=== PATIENT | male | born 1960 | race Caucasian/White ===

== ENCOUNTER → 2024-04-14 | Outpatient (CLI) | payer BC, MEDICARE, SELFPAY | END | disposition home or self-care (01) | LOC: SLDO 15:39 | PROVIDERS: PCP Registered Nurse; Referring Provider Registered Nurse; Visit Provider Registered Nurse | DX: L02.415 Cutaneous abscess of right lower limb (principal); L03.115 Cellulitis of right lower limb | CPT/HCPCS: 87070; 87075; 87077; 87186; 87205 ==

== ENCOUNTER 2024-09-15 13:31 | Emergency (ER) | payer BC, SELFPAY ==
[2024-09-15 13:31] VITALS: BMI 31.7
[2024-09-15 13:45] VITALS: BP 136/69; PULSE 72; RESP 18; TEMP 36.9; O2SAT 96
--- NOTE | 2024-09-15 13:56 | XR_ITS ---
Examination: Abdomen sonogram, Limited Date and time of exam: September 15, 2024 1410 hours INDICATIONS: Epigastric pain 7 months with high ammonia levels Technique: Real-time gupta scale transabdominal sonographic images of the upper abdomen obtained. Findings: Absent gallbladder Common bile duct 0.4 cm Pancreatic head 3.3 cm with dilated pancreatic duct 1.6 cm Liver 15.3 cm irregular contour hepatopedal portal venous flow Patent IVC IMPRESSION: Cirrhosis Dilated pancreatic duct, consider MRCP follow-up
--- NOTE | 2024-09-15 13:57 | PD.EDRME ---
Rapid Medical Screening Exam RME Arrival date/time: 09/15/24 13:31 64-year-old male with a history of liver cirrhosis was sent over by his primary care provider for an elevated ammonia level. Patient had labs drawn this morning. I have greeted and performed a focused initial assessment of this patient. A comprehensive ED assessment and evaluation of the patient, analysis of all test results, and completion of the medical decision making process will be conducted by additional ED providers. Chief Complaint: Recheck/Abnormal Lab/Rx Vital signs: Vital Signs Temperature 98.4 F 09/15/24 13:45 Pulse Rate 72 09/15/24 13:45 Respiratory Rate 18 09/15/24 13:45 Blood Pressure 136/69 H 09/15/24 13:45 Pulse Oximetry (%) 96 09/15/24 13:45 Oxygen Delivery Method Room Air 09/15/24 13:45 Vital signs reviewed by provider: Yes
--- NOTE | 2024-09-15 17:30 | PC.NURSE ---
no answer in lobby when called for room in ed
[2024-09-15 19:18] VITALS: BP 151/65; PULSE 72; RESP 18; TEMP 36.6; O2SAT 97
--- NOTE | 2024-09-15 20:17 | PD.EDRECHK ---
ED Recheck Abnl Lab Rx-RME/HPI General Chief Complaint: Recheck/Abnormal Lab/Rx Stated Complaint: HIGH AMMONIA LEVELS Time Seen by Provider: 09/15/24 18:38 Arrival date/time: 09/15/24 13:31 RME / HPI RME / HPI narrative: 09/15/24 13:31 64-year-old male with a history of liver cirrhosis was sent over by his primary care provider for an elevated ammonia level. Patient had labs drawn this morning. He denies any increased confusion. Patient admits to only taking his lactulose 15 mL once daily when he should be taking it twice daily. He denies any recent illness with fever, chills, cough, upper respiratory complaints. He is complaining of chronic nausea and upset stomach. Denies vomiting or hematemesis. I have greeted and performed a focused initial assessment of this patient. A comprehensive ED assessment and evaluation of the patient, analysis of all test results, and completion of the medical decision making process will be conducted by additional ED providers. Related Data Previous Rx's ?Medication ?Instructions ?Recorded nicotine 21 mg/24 hr daily 21 mg topical Q24H #7 ea 10/14/23 transdermal patch (Nicoderm CQ) Allergies Allergy/AdvReac Type Severity Reaction Status Date / Time Penicillins Allergy Severe Rash Verified 01/11/24 12:27 Review of Systems Review of Systems Systems Reviewed: All systems reviewed, normal except as documented Past Medical History Past Medical History NEUROLOGIC: Negative Seizures CARDIAC: Positive Cardiac Disorders, Edema and Hypotension; Negative Congestive Heart Failure RESPIRATORY: Positive Chronic Obstructive Pulmonary Disease (COPD), Bronchitis and Pneumonia GASTROINTESTINAL: Positive Gastrointestinal Disorders, Hepatitis (hep c), Cirrhosis, Gall Bladder Disease, Obstructive Bowel and Gastroesophageal Reflux Disease GENITOURINARY: Negative Renal Disease MUSCULOSKELETAL: Positive Musculoskeletal Disorders and Arthritis ENT: Positive Ear Infection and Deafness ENDOCRINE: Negative Diabetes Mellitus Type 1 or Diabetes Mellitus Type 2 PSYCHO/SOCIAL: Positive Depression and Anxiety OTHER HISTORY: Positive Chemotherapy (non hodgkins); Negative Blood Transfusions or Anesthesia Reactions Surgical History SURGICAL: Positive Tonsillectomy, Abdominal Surgery, Gastrostomy and Bowel Surgery Social History SMOKING STATUS: Current some day smoker ED Exam Narrative Physical exam: Alert and oriented 64-year-old male, no acute distress. Lungs are clear, regular rate and rhythm without murmurs. Abdomen is distended, soft, nontender. Extremities reveal venous stasis dermatitis with bilateral pitting edema. Course Orders Category Date Time Status US gall bladder Stat Exams 09/15/24 13:56 Completed Vital Signs Vital signs: Vital Signs Temperature 98.4 F 09/15/24 13:45 Pulse Rate 72 09/15/24 13:45 Respiratory Rate 18 09/15/24 13:45 Blood Pressure 136/69 H 09/15/24 13:45 Pulse Oximetry (%) 96 09/15/24 13:45 Oxygen Delivery Method Room Air 09/15/24 13:45 Recheck / Abnormal Lab / Rx Consultations Consultation(s) initiated? (list below): Yes Consultation #1 (Physician, Specialty, Details): Dr Styles. He recommends the patient to take lactulose 15 mL twice daily and follow-up in the office next week. Admission Indicated Admission indicated?: not indicated Explain why admission is indicated or not indicated:: Patient is stable for discharge Admission Request Was there a request for admission?: No Disposition Plan Disposition Plan: Discharge Discharge Attestation Discharge Attestation: The patient and all family members were given an opportunity to ask questions and understood the discharge instructions. Discharge instructions specifically effects, indications for sooner follow up or return to the emergency department, and the expected course of current diagnosis. Patient condition: Stable Discharge Plan Plan Patient Disposition: HOME (Self Care) Discharge Disposition comment: Stable Prescriptions/Referrals Prescriptions/Med Rec: No Action nicotine [Nicoderm CQ] 21 mg/24 hr patch 24 hour 21 mg topical Q24H Qty: 7 0RF Problem List Clinical Impression: Cirrhosis, Increased ammonia level Patient/Caregiver Discharge Instructions Education Materials: ED Cirrhosis Additional Instructions: Case discussed with Dr. Styles. He recommends you take the lactulose 15ml twice daily as previously prescribed. Your ammonia level will continue to be elevated as long as you do not take your lactulose as prescribed. He would like you to follow-up in the office next week. Print Language: Zimbabwean Stand Alone Forms: Lynda Award Info., Patient Portal Info Letter PA/RN MDS COORDINATOR Supervising Physician PA/RN MDS COORDINATOR Supervising Physician: Dr Lang
== END 2024-09-15 20:39 | disposition home or self-care (01) ==
PROVIDERS: Emergency Provider Emergency Medicine; PCP Family Medicine
DX: K74.60 Unspecified cirrhosis of liver (principal); K86.89 Other specified diseases of pancreas
CPT/HCPCS: 76705; 99284

== ENCOUNTER → 2024-09-15 | Outpatient (CLI) | payer BC, SELFPAY ==
[2024-09-15 11:06] LABS: Lactate (Lactic Acid) 2.1 mMol/L (0.4-2.0)
[2024-09-15 11:07] LABS: Basophils # (Auto) 0.1 Thou/mm3 (0.0-0.2); Basophils % (Auto) 1 % (0-2.5); Eosinophils # (Auto) 0.2 Thou/mm3 (0.0-0.5); Eosinophils % (Auto) 3 % (0-10); Hematocrit 39.1 % (41.0-53.0); Hemoglobin 14.1 g/dL (13.5-16.0); Immature Granulocytes % (Auto) 0 % (0-0); Immature Granulocytes Auto 0.02 Thou/mm3 (0.00-0.00); Lymphocytes # (Auto) 1.5 Thou/mm3 (1.0-4.8); Lymphocytes % (Auto) 27 % (10-50); Mean Corpuscular HGB Conc 36.1 g/dl (31.0-37.0); Mean Corpuscular Hemoglobin 34.6 pg (25.0-35.0); Mean Corpuscular Volume 96 fL (80-100); Monocytes # (Auto) 0.5 Thou/mm3 (0.0-0.8); Monocytes % (Auto) 9 % (0-12); Neutrophils # (Auto) 3.5 Thou/mm3 (1.8-7.7); Neutrophils % (Auto) 60 % (37-80); Nucleated Red Blood Cell % 0 /100 WBC (0); Platelet Count 104 Thou/mm3 (140-440); RDW Standard Deviation 49.8 fL (35.1-43.9); Red Blood Count 4.07 Miln/mm3 (4.50-5.90); White Blood Count 5.8 Thou/mm3 (3.8-10.6)
[2024-09-15 11:30] LABS: Alanine Aminotransferase 32 U/L (10-49); Albumin, Serum 3.6 gm/dL (3.4-4.8); Albumin/Globulin Ratio 1.6 (1.2-2.2); Alkaline Phosphatase 138 U/L (46-116); Anion Gap 8 (7-16); Aspartate Amino Transferase 36 U/L (0-34); BUN/Creatinine Ratio 9 Ratio (12-20); Bilirubin,Total 2.7 mg/dL (0.3-1.2); Blood Urea Nitrogen 8 mg/dL (9-23); Calcium 8.5 mg/dL (8.3-10.6); Calcium (Corrected) 8.8 mg/dL (8.5-10.1); Chloride 108 mMol/L (98-107); Creatinine (Component) 0.9 mg/dL (0.6-1.3); Globulin 2.3 gm/dL (2.3-3.5); Glucose 165 mg/dL (74-106); Osmolality,Calculated 292 (275-295); Potassium 3.7 mMol/L (3.4-5.1); Sodium 146 mMol/L (136-145); Total Protein 5.9 gm/dL (5.7-8.2); eGFR > 60 See Note
[2024-09-15 11:31] LABS: Ammonia 107 uMol/L (11-32)
[2024-09-15 13:47] LABS: Reflex Lactate? Y
== END | disposition home or self-care (01) ==
LOC: COPL 10:12
PROVIDERS: PCP Family Medicine; Referring Provider Family Medicine; Visit Provider Family Medicine
DX: K76.82 Hepatic encephalopathy (principal); K70.31 Alcoholic cirrhosis of liver with ascites; R60.0 Localized edema
CPT/HCPCS: 36415; 80053; 82140; 83605; 85025

== ENCOUNTER 2024-10-27 08:36 | Emergency (ER) | payer BC, SELFPAY ==
[2024-10-27 08:43] VITALS: BP 148/86; PULSE 71; RESP 18; O2SAT 98; BMI 31.3
--- NOTE | 2024-10-27 08:52 | EKG_ITS ---
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pdf
--- NOTE | 2024-10-27 08:52 | XR_ITS ---
Examination: PA lateral chest 2 views TECHNIQUE: Upright PA lateral chest 2 views Date and time: October 27, 2024 0929 hours INDICATIONS: Onset acute chest pain today. FINDINGS: Normal heart size. No pneumonia or pulmonary edema. Intact osseous structures. IMPRESSION: No active disease
--- NOTE | 2024-10-27 08:52 | PD.EDRME ---
Rapid Medical Screening Exam RME Arrival date/time: 10/27/24 08:36 64-year-old male with history of methamphetamine abuse, cirrhosis presents with concerns for feeling disoriented Chief Complaint: General Adult/Misc Complain Vital signs: Vital Signs Pulse Rate 71 10/27/24 08:43 Respiratory Rate 18 10/27/24 08:43 Blood Pressure 148/86 H 10/27/24 08:43 Pulse Oximetry (%) 98 10/27/24 08:43 Oxygen Delivery Method Room Air 10/27/24 08:43
--- NOTE | 2024-10-27 08:53 | XR_ITS ---
Examination: CT brain head without contrast. 2-D sagittal coronal reconstructions Date and time of exam:October 27, 2024 0916 hours Comparison 01/11/2024 INDICATIONS: Headache dizziness ataxia today CTDI: vol (mGy):104 DLP: (mGycm):22.15 Technique: Multiple CT axial sections of the brain have been obtained, 5 mm slice thickness. Contrast has not been administered. 2-D sagittal, coronal reconstructions have been obtained Low dose protocols were performed. One or more of the following dose reduction techniques were used; automated exposure control, adjustment of the mA and/or KV according to patient size, use of iterative reconstruction technique. Findings: Images are degraded by patient motion Ventricles are not enlarged. No hemorrhage density or mass effect Cranial vault intact IMPRESSION: Negative for acute hemorrhage mass effect or midline shift If symptoms persist, consider brain MRI follow-up stroke protocol
[2024-10-27 09:23] LABS: Basophils # (Auto) 0.1 Thou/mm3 (0.0-0.2); Basophils % (Auto) 1 % (0-2.5); Eosinophils # (Auto) 0.2 Thou/mm3 (0.0-0.5); Eosinophils % (Auto) 2 % (0-10); Hematocrit 38.9 % (41.0-53.0); Hemoglobin 14.6 g/dL (13.5-16.0); Immature Granulocytes Auto 0.02 Thou/mm3 (0.00-0.00); Lymphocytes # (Auto) 1.8 Thou/mm3 (1.0-4.8); Lymphocytes % (Auto) 22 % (10-50); Mean Corpuscular HGB Conc 37.5 g/dl (31.0-37.0); Mean Corpuscular Hemoglobin 35.1 pg (25.0-35.0); Mean Corpuscular Volume 94 fL (80-100); Monocytes # (Auto) 0.8 Thou/mm3 (0.0-0.8); Monocytes % (Auto) 10 % (0-12); Neutrophils # (Auto) 5.4 Thou/mm3 (1.8-7.7); Neutrophils % (Auto) 65 % (37-80); Nucleated Red Blood Cell # 0.00 Thou/mm3 (0.00-0.00); Nucleated Red Blood Cell % 0 /100 WBC (0); Platelet Count 98 Thou/mm3 (140-440); RDW Standard Deviation 47.9 fL (35.1-43.9); Red Blood Count 4.16 Miln/mm3 (4.50-5.90); White Blood Count 8.3 Thou/mm3 (3.8-10.6)
--- NOTE | 2024-10-27 09:24 | EDNOTE_ITS ---
ED General RME/HPI General Chief complaint: General Adult/Misc Complain Stated complaint: tired, no appetite, sleeping alot. ammonia high Time Seen by Provider: 10/27/24 09:17 Arrival date/time: 10/27/24 08:36 RME / HPI RME / HPI narrative: 10/27/24 08:36 64-year-old male with history of methamphetamine abuse, cirrhosis presents with concerns for feeling disoriented Related Data Previous Rx's ?Medication ?Instructions ?Recorded nicotine 21 mg/24 hr daily 21 mg topical Q24H #7 ea transdermal patch (Nicoderm CQ) lactulose 10 gram/15 mL oral 20 g (30 mL) PO TID #3,78 5 mL 10/27/24 solution pantoprazole 40 mg tablet,delayed 40 mg PO QDAY #30 ta bs 10/27/24 release Allergies Allergy/AdvReac Type Severity Reaction Status Date / Time Penicillins Allergy Severe Rash Verified 10/27/24 08:37 Review of Systems Review of Systems Systems Reviewed: All systems reviewed, normal except as documented ED Exam Narrative Physical exam: Physical Exam GENERAL: NAD, AAOx3 HEENT: Moist mucosa. Eyes open, symmetrical, & clear CARDIO: Heart RRR, no obvious murmurs PULM: No noted coughing/dyspnea CTA B/L, no R/W/R GI: Abdomen soft, distended, no pain on palpation. BSx4 SKIN/MSK/EXT: Venous stasis dermatitis on bilateral lower extremities mild pitting edema up to the ankle, no pain on palpation. Pedal pulses present B/L NEURO: AAOx3, no focal neuro deficits, able to move all 4 extremities Course Course Course Narrative: See [facility] Quality Measures none Orders Category Date Time Status EKG (ED ONLY) *Do not use* NOW Care 10/27/24 08:[address] head/brain wo con Stat Exams 10/27/24 08:53 Completed EKG (ED Only) Stat Exams 10/27/24 08:52 Draft XR chest 2V Stat Exams 10/27/24 08:52 Completed Ammonia Stat Lab 10/27/24 09:11 Completed B-Type Natriuretic Peptide Stat Lab 10/27/24 09:11 Completed CBC Stat Lab 10/27/24 09:11 Completed Comprehensive Metabolic Panel Stat Lab 10/27/24 09:11 Completed Drug Screen,Urine Stat Lab 10/27/24 08:52 Ordered Lipase Stat Lab 10/27/24 09:11 Completed Magnesium Stat Lab 10/27/24 09:11 Completed Partial Thromboplastin Time Stat Lab 10/27/24 09:11 Completed Prothrombin Time with INR Stat Lab 10/27/24 09:11 Completed Troponin I Stat Lab 10/27/24 09:11 Completed Urinalysis Stat Lab 10/27/24 08:52 Ordered Magnesium Oxide [Mag-Ox 400] Med 10/27/24 10:09 Discontinued 400 mg PO X1 ONE Pantoprazole [Protonix] Med 10/27/24 10:20 Discontinued 40 mg PO X1 ONE Vital Signs Vital signs: Vital Signs Pulse Rate 71 10/27/24 08:43 Respiratory Rate 18 10/27/24 08:43 Blood Pressure 148/86 H 10/27/24 08:43 Pulse Oximetry (%) 98 10/27/24 08:43 Oxygen Delivery Method Room Air 10/27/24 08:43 Discharge Plan Plan Patient Disposition: HOME (Self Care) Prescriptions/Referrals Prescriptions/Med Rec: New lactulose 10 gram/15 mL solution 20 g PO TID Qty: 3785 0RF pantoprazole 40 mg tablet,delayed release (DR/EC) 40 mg PO QDAY Qty: 30 0RF No Action nicotine [Nicoderm CQ] 21 mg/24 hr patch 24 hour 21 mg topical Q24H Qty: 7 0RF Problem List Clinical Impression: Hyperammonemia Patient/Caregiver Discharge Instructions Additional Instructions: Follow-up with your primary care physician within 1 week of discharge. Your lactulose dose has been increased please take this medication as prescribed titrate until 3 bowel movements per day. 30 mL in the morning, 30 mL at noon, 30 mL at 6 PM You have been prescribed pantoprazole for your upset stomach. Please continue taking your diuretics for your cirrhosis. Should your symptoms should recur or worsen patient is instructed to return to the ER. Print Language: Yi Stand Alone Forms: Lynda Award Info., Patient Portal Info Letter MDM Narrative MDM hospital course: 64-year-old male with past medical history of non-Hodgkin lymphoma status postchemotherapy, hepatitis C, cirrhosis, COPD, GERD who presented to the ED due to confusion. Patient states that he thinks his ammonia levels are high, he endorses that usually he knows if his ammonia levels are elevated because he feels more confused, he is running into christensen. He also endorses some nausea and vomiting nonbloody. He states he takes his lactulose at least twice a day, however patient has only been having 1 bowel movement every 1 to 2 days. He also endorses that he has decreased appetite. Labs ordered, head CT ordered 1007: CBC shows some thrombocytopenia, CMP shows hypomagnesemia and chronically elevated T. bili Per chart review, ammonia level 77, troponins negative 1034: Ordered 1 dose of magnesium oxide, and pantoprazole Increased his outpatient lactulose to 3 times a day and instructed the patient that he needs to have at least 3 bowel movements per day in order to get rid of the excess ammonia in his body. Patient instructed to follow-up with his primary care physician. Gave him instructions on how to take his lactulose in order to prevent his ammonia levels from increasing. Should symptoms recur or worsen patient is instructed to return to the ER. Clinical Information Provided by patient and family Medical Records Reviewed [facility] Chronic Illness/Social Conditions which may negatively complicate care or outcome(s)-explain: Liver disease EKG Interpretation EKG #1: Date/time of EK10/27/24 9:58 am Lab Interpretation Labs: interpreted by la Lab(s) interpretation(s): CBC shows thrombocytopenia,, Medication Administration(s) Medication Administration History Discontinued Medications Magnesium Oxide (Magnesium Oxide 400 Mg Tablet) 400 mg PO X1 ONE Stop: 10/27/24 10:10 Pantoprazole Sodium (Pantoprazole 40 Mg Tablet) 40 mg PO X1 ONE Stop: 10/27/24 10:21
--- NOTE | 2024-10-27 09:40 | PC.NURSE ---
PT COMING IN FROM ED LOBBY WITH C/O GENERALIZED BODY ACHES; PER PT, I HURT ALL OVER; IT'S BEEN LIKE THIS FOR 3 YEARS. I HAVE LIVER CIRRHOSIS. I ALSO HAVE BEEN NAUSEOUS AND VOMITING FOR THE PAST COUPLE OF DAYS AND I FEEL LIKE I'M CONFUSED; I'M BUMPING INTO [place]. I'M SLEEPING ALL THE TIME. I USUALLY GET LIKE THIS WHEN MY AMMONIA IS HIGH. THE LAST TIME I WAS IN A HOSPITAL, MY AMMONIA WAS HIGH TOO. PT CONNECTED TO MONITORS AT THIS TIME.
[2024-10-27 09:45] VITALS: BP 168/77; PULSE 68; RESP 13; TEMP 36.7; O2SAT 100; BMI 32.3
[2024-10-27 09:50] LABS: Ammonia 77 uMol/L (11-32)
[2024-10-27 09:53] LABS: Alanine Aminotransferase 22 U/L (10-49); Albumin, Serum 3.7 gm/dL (3.4-4.8); Albumin/Globulin Ratio 1.3 (1.2-2.2); Alkaline Phosphatase 122 U/L (46-116); Anion Gap 6 (7-16); Aspartate Amino Transferase 38 U/L (0-34); BUN/Creatinine Ratio 9 Ratio (12-20); Bilirubin,Total 2.8 mg/dL (0.3-1.2); Blood Urea Nitrogen 9 mg/dL (9-23); Calcium 8.8 mg/dL (8.3-10.6); Calcium (Corrected) 9.0 mg/dL (8.5-10.1); Carbon Dioxide 29.5 mMol/L (20.0-31.0); Chloride 107 mMol/L (98-107); Creatinine (Component) 1.0 mg/dL (0.6-1.3); Estimated Creatinine Clearance 84.1 mL/min (>60); Globulin 2.8 gm/dL (2.3-3.5); Glucose 249 mg/dL (74-106); Lipase 38 U/L (12-53); Magnesium 1.4 mg/dL (1.6-2.6); Osmolality,Calculated 289 (275-295); Potassium 3.9 mMol/L (3.4-5.1); Sodium 142 mMol/L (136-145); Total Protein 6.5 gm/dL (5.7-8.2); Troponin I < 0.020 ng/mL (0.0-0.045); eGFR > 60 See Note
[2024-10-27 10:00] LABS: B-Type Natriuretic Peptide 26 pg/mL (0-100)
[2024-10-27 10:07] LABS: INR 1.2 (0.9-1.3); Partial Thromboplastin Time 29.0 Seconds (22.0-36.0); Prothrombin Time 13.2 Seconds (9.0-12.2)
[2024-10-27] MEDS: MAGNESIUM OXIDE 400 MG TABLET PO (10:37)
[2024-10-27] MEDS: PANTOPRAZOLE 40 MG TABLET PO (10:37)
[2024-10-27 10:39] VITALS: BP 125/101; PULSE 67; RESP 19; TEMP 36.7; O2SAT 95
== END 2024-10-27 10:47 | disposition home or self-care (01) ==
LOC: SERX 10:47
PROVIDERS: Nurse Practitioner Primary Care; Emergency Provider Family Medicine; PCP Family Medicine
DX: E72.20 Disorder of urea cycle metabolism, unspecified (principal); K74.60 Unspecified cirrhosis of liver; R07.9 Chest pain, unspecified; R51.9 Headache, unspecified; R42 Dizziness and giddiness; I45.10 Unspecified right bundle-branch block; I44.4 Left anterior fascicular block
CPT/HCPCS: 36415; 70450; 71046; 80053; 80307; 81001; 82140; 83690; 83735; 83880; 84484; 85025; 85610; 85730; 93005; 99284; A9270

== ENCOUNTER → 2024-11-17 | Outpatient (CLI) | payer BC, SELFPAY ==
[2024-11-17 10:36] LABS: Alanine Aminotransferase 31 U/L (10-49); Albumin, Serum 3.8 gm/dL (3.4-4.8); Albumin/Globulin Ratio 1.6 (1.2-2.2); Alkaline Phosphatase 113 U/L (46-116); Anion Gap 10 (7-16); Aspartate Amino Transferase 38 U/L (0-34); BUN/Creatinine Ratio 7 Ratio (12-20); Bilirubin,Total 3.8 mg/dL (0.3-1.2); Blood Urea Nitrogen 7 mg/dL (9-23); Calcium 9.0 mg/dL (8.3-10.6); Calcium (Corrected) 9.2 mg/dL (8.5-10.1); Carbon Dioxide 29.4 mMol/L (20.0-31.0); Chloride 107 mMol/L (98-107); Creatinine (Component) 1.0 mg/dL (0.6-1.3); Globulin 2.4 gm/dL (2.3-3.5); Glucose 150 mg/dL (74-106); Osmolality,Calculated 291 (275-295); Potassium 3.4 mMol/L (3.4-5.1); Sodium 146 mMol/L (136-145); Total Protein 6.2 gm/dL (5.7-8.2); eGFR > 60 See Note
[2024-11-17 10:46] LABS: Ammonia 116 uMol/L (11-32)
== END | disposition home or self-care (01) ==
LOC: COPL 09:27
PROVIDERS: PCP Family Medicine; Referring Provider Family Medicine; Visit Provider Family Medicine
DX: N18.2 Chronic kidney disease, stage 2 (mild) (principal); K70.31 Alcoholic cirrhosis of liver with ascites; L97.801 Non-pressure chronic ulcer of other part of unspecified lower leg limited to breakdown of skin
CPT/HCPCS: 36415; 80053; 82140

== ENCOUNTER 2024-12-20 08:19 | Emergency (ER) | payer MEDICARE, SELFPAY ==
[2024-12-20 08:32] VITALS: BP 150/68; PULSE 60; RESP 18; TEMP 36.6; O2SAT 98
--- NOTE | 2024-12-20 08:36 | XR_ITS ---
Examination: CT abdomen and pelvis without contrast. Coronal 3-D reconstructions. Sagittal 2-D reconstructions. Date and time of exam:December 20, 2024 0917 hours INDICATIONS: Generalized abdominal pain and distention today COMPARISON: 12/19/2016. CTDI: vol (mGy): 9.76 DLP: (mGycm): 653 Technique: Axial images of the abdomen have been obtained, 3 mm slice thickness Intravenous contrast material has not been administered. Low dose protocols were performed. One or more of the following dose reduction techniques were used; automated exposure control, adjustment of the mA and/or KV according to patient size, use of iterative reconstruction technique. Findings: Cirrhosis, liver nodular in contour Suspicious for 27 mm lesion medial right lobe of the liver. Splenomegaly. Absent gallbladder No extra hepatic biliary tract dilatation. No pancreatic mass. Moderate renal scar formation, no hydronephrosis Aorta normal size. No pericecal inflammatory change. No bowel obstruction Contracted urinary bladder with urinary bladder wall thickening No significant prostatomegaly Prominent osteopenia IMPRESSION: Cirrhosis 27 mm lesion medial right lobe of the liver, recommend MRI abdomen liver follow-up pre and postcontrast Moderate renal scar formation Contracted urinary bladder with urinary bladder wall thickening, differential would include cystitis
--- NOTE | 2024-12-20 08:37 | PD.EDRME ---
Rapid Medical Screening Exam RME Arrival date/time: 12/20/24 08:19 64-year-old male with a history of COPD, cirrhosis of the liver, presents to the emergency room with a chief complaint of abdominal distention, body aches, abdominal pain x 3 days I have greeted and performed a focused initial assessment of this patient. A comprehensive ED assessment and evaluation of the patient, analysis of all test results, and completion of the medical decision making process will be conducted by additional ED providers. Chief Complaint: General Adult/Misc Complain Vital signs: Vital Signs Temperature 97.9 F 12/20/24 08:32 Pulse Rate 60 12/20/24 08:32 Respiratory Rate 18 12/20/24 08:32 Blood Pressure 150/68 H 12/20/24 08:32 Pulse Oximetry (%) 98 12/20/24 08:32 Oxygen Delivery Method Room Air 12/20/24 08:32 Vital signs reviewed by provider: Yes
[2024-12-20 08:59] LABS: Basophils # (Auto) 0.1 Thou/mm3 (0.0-0.2); Basophils % (Auto) 1 % (0-2.5); Eosinophils # (Auto) 0.2 Thou/mm3 (0.0-0.5); Eosinophils % (Auto) 3 % (0-10); Hematocrit 41.1 % (41.0-53.0); Hemoglobin 14.9 g/dL (13.5-16.0); Immature Granulocytes Auto 0.02 Thou/mm3 (0.00-0.00); Lymphocytes # (Auto) 2.0 Thou/mm3 (1.0-4.8); Lymphocytes % (Auto) 27 % (10-50); Mean Corpuscular HGB Conc 36.3 g/dl (31.0-37.0); Mean Corpuscular Hemoglobin 34.2 pg (25.0-35.0); Mean Corpuscular Volume 94 fL (80-100); Monocytes # (Auto) 0.7 Thou/mm3 (0.0-0.8); Monocytes % (Auto) 9 % (0-12); Neutrophils # (Auto) 4.4 Thou/mm3 (1.8-7.7); Neutrophils % (Auto) 60 % (37-80); Nucleated Red Blood Cell # 0.00 Thou/mm3 (0.00-0.00); Nucleated Red Blood Cell % 0 /100 WBC (0); Platelet Count 101 Thou/mm3 (140-440); RDW Standard Deviation 47.1 fL (35.1-43.9); Red Blood Count 4.36 Miln/mm3 (4.50-5.90); White Blood Count 7.3 Thou/mm3 (3.8-10.6)
[2024-12-20 09:17] LABS: INR 1.2 (0.9-1.3); Partial Thromboplastin Time 29.8 Seconds (22.0-36.0); Prothrombin Time 13.1 Seconds (9.0-12.2)
[2024-12-20 09:20] LABS: Alanine Aminotransferase 26 U/L (10-49); Albumin, Serum 3.5 gm/dL (3.4-4.8); Albumin/Globulin Ratio 1.4 (1.2-2.2); Alkaline Phosphatase 136 U/L (46-116); Ammonia 45 uMol/L (11-32); Anion Gap 8 (7-16); Aspartate Amino Transferase 32 U/L (0-34); BUN/Creatinine Ratio 7 Ratio (12-20); Bilirubin,Total 2.3 mg/dL (0.3-1.2); Blood Urea Nitrogen 7 mg/dL (9-23); Calcium 9.5 mg/dL (8.3-10.6); Calcium (Corrected) 9.9 mg/dL (8.5-10.1); Carbon Dioxide 29.3 mMol/L (20.0-31.0); Chloride 107 mMol/L (98-107); Creatinine (Component) 1.0 mg/dL (0.6-1.3); Estimated Creatinine Clearance 84.3 mL/min (>60); Globulin 2.5 gm/dL (2.3-3.5); Glucose 163 mg/dL (74-106); Lipase 35 U/L (12-53); Magnesium 1.8 mg/dL (1.6-2.6); Osmolality,Calculated 288 (275-295); Potassium 4.0 mMol/L (3.4-5.1); Sodium 144 mMol/L (136-145); Total Protein 6.0 gm/dL (5.7-8.2); eGFR > 60 See Note
[2024-12-20 09:47] LABS: Collection Type, Urine Clean Catch
[2024-12-20 09:53] VITALS: BP 153/73; PULSE 57; RESP 19; TEMP 37.1; O2SAT 98
--- NOTE | 2024-12-20 09:53 | XR_ITS ---
Examination: AP chest single view TECHNIQUE: Sitting portable AP chest single view Date and time: December 20, 2024, 1002 hours, comparison October 27, 2024 INDICATIONS: Coughing shortness of breath beginning 3 days ago. FINDINGS: Heart size. Lungs are clear. The osseous structures are intact IMPRESSION: No active disease.
[2024-12-20 09:56] LABS: Bilirubin,Urine Negative (Negative); Blood,Urine Negative (Negative); Clarity,Urine Clear (Clear/Hazy); Color,Urine Yellow (Lt Yel-Yel); Glucose, Urine 1+ (Negative); Hyaline Casts,Urine < 1 /hpf (0-1); Ketones,Urine Negative (Negative); Leukocyte Esterase,Urine Negative (Negative); Nitrite,Urine Negative (Negative); PH,Urine 7.0 (5.0-7.0); Protein,Urine Negative (Neg - Trace); RBC,Urine 1 /hpf (0-3); Specific Gravity,Urine 1.018 (1.001-1.035); Squamous Epithelial Cell,Urine < 1 /hpf (0-5); Urobilinogen,Urine 4.0 mg/dL (0.0-1.0); WBC,Urine 2 /hpf (0-5)
[2024-12-20] MEDS: OSELTAMIVIR 75 MG CAPSULE PO (10:24)
[2024-12-20] MEDS: ACETAMINOPHEN 325 MG TABLET 650 MG PO (10:24)
--- NOTE | 2024-12-20 11:26 | EDNOTE_ITS ---
ED General RME/HPI General Chief complaint: General Adult/Misc Complain Stated complaint: GENERALIZED PAIN Time Seen by Provider: 12/20/24 08:37 Arrival date/time: 12/20/24 08:19 RME / HPI RME / HPI narrative: 12/20/24 08:19 64-year-old male with a history of COPD, cirrhosis of the liver, presents to the emergency room with a chief complaint of abdominal distention, body aches, abdominal pain x 3 days I have greeted and performed a focused initial assessment of this patient. A comprehensive ED assessment and evaluation of the patient, analysis of all test results, and completion of the medical decision making process will be conducted by additional ED providers. 64-year-old male with past medical history of cirrhosis, hepatitis C,COPD, GERD, depression, anxiety who presented to [facility] emergency department on 12/20/2024 with a chief complaint of generalized bodyaches, abdominal pain, back pain and feeling weak. Patient endorsed that he has been feeling very sad recently, denies any suicidal ideation but does report that his liver illness has made his life very difficult he feels like a shell of his old self, reports that he misses his and daughter. Discussed with patient in detail about his depressive symptoms, recommended him that he needs to follow-up with his primary care physician regarding his depression and try medication if possible. Patient also expressed interest in possible hospice, recommended him to follow-up with PCP for transitioning after discussion. Patient denies any blood in vomit/stool, nausea vomiting, shortness of breath, chest pain, headache. Related Data Home Medications ?Medication ?Instructions ?Recorded ?Confirmed furosemide 40 mg tablet 40 mg PO QDAY 12/20/2412/20 potassium chloride 10 mEq 10 meq PO QDAY 12/20/2401/05 capsule,extended release Previous Rx's ?Medication ?Instructions ?Recorded nicotine 21 mg/24 hr daily 21 mg topical Q24H #7 ea transdermal patch (Nicoderm CQ) lactulose 10 gram/15 mL oral 20 g (30 mL) PO TID #3,78 5 mL 10/27/24 solution acetaminophen 325 mg tablet 325 mg PO TID PRN pain #20 tabs 12/20/24 (Tylenol) oseltamivir 75 mg capsule (Tamiflu) 75 mg PO BID 5 day s #10 caps 12/20/24 Allergies Allergy/AdvReac Type Severity Reaction Status Date / Time Penicillins Allergy Severe Rash Verified 12/20/24 08:23 Review of Systems Review of Systems Narrative Review of Systems: ROS: -CONSTITUTIONAL: Denies weight loss, fever and chills. Positive for generalized weakness. -HEENT: Denies changes in vision and hearing. -RESPIRATORY: Denies SOB and cough. -CV: Denies palpitations and Chest Pain. -GI: Positive for abdominal pain, denies nausea, vomiting,constipation and diarrhea. -: Denies dysuria and urinary frequency. -MSK: Denies myalgia and joint pain. -SKIN: Denies rash and pruritus. -NEUROLOGICAL: Denies headache and syncope. -PSYCHIATRIC: Denies recent changes in mood. Denies anxiety and positive for depression. Past Medical History Past Medical History Comments PMH COMMENT: PMH: Positive as above PSHx: Hernia surgery, multiple abdominal surgeries Allergies: Penicillin?rash Social history: -Smoking: Current active daily smoker -Alcohol Use: Denies, last drink 5 years ago, reports heavy alcohol use in the past -Illicit Drug Use: Denies -Occupation: Retired -Martial Status: Family History: Denies any pertinent family history ED Exam Narrative Physical exam: Physical Exam GENERAL: NAD, AAOx3 HEENT: Moist mucosa. Eyes open, symmetrical, & clear CARDIO: Heart RRR, no obvious murmurs PULM: No noted coughing/dyspnea CTA B/L, no R/W/R GI: Abdomen soft, distended, no pain on palpation. BSx4 abdominal scar noted SKIN/MSK/EXT: Venous stasis dermatitis on bilateral lower extremities minimal pitting edema up to the ankle, no pain on palpation. Pedal pulses present B/L NEURO: AAOx3, no focal neuro deficits, able to move all 4 extremities Course Course Course Narrative: Patient was given Tylenol for pain management, tested positive for influenza A and B, started on Tamiflu. Patient did endorse taking his lactulose earlier this morning, ammonia levels 45 which are around his baseline. Was given lactulose prior to discharge, patient discharged outpatient on Tamiflu to [facility] treatment for 5 days, follow-up with PCP in 1 week. Quality Measures none Orders Category Date Time Status Bedside COVID-19 Antigen Test NOW Care 12/20/24 08:37 Completed Bedside Influenza A&B Antigen Test NOW Care 12/20/24 08:[address] abdomen pelvis wo con Stat Exams 12/20/24 08:36 Completed CXRP [XR chest 1V portable] Stat Exams 12/20/24 09:53 Completed Ammonia Stat Lab 12/20/24 08:49 Completed CBC Stat Lab 12/20/24 08:49 Completed CMP [Comprehensive Metabolic Panel] Stat Lab 12/20/24 08:49 Completed INR [Prothrombin Time with INR] Stat Lab 12/20/24 08:49 Completed Lipase Stat Lab 12/20/24 08:49 Completed Magnesium Stat Lab 12/20/24 08:49 Completed PTT [Partial Thromboplastin Time] Stat Lab 12/20/24 08:49 Completed UA [Urinalysis] Stat Lab 12/20/24 09:15 Completed Urine Culture Stat Lab 12/20/24 09:15 Received Acetaminophen Tab [Tylenol Tab] Med 12/20/24 09:42 Discontinued 650 mg PO X1 ONE Lactulose Syrup [Enulose Syrup] Med 12/20/24 11:50 Discontinued 20 gm PO X1 ONE Oseltamivir [Tamiflu] Med 12/20/24 10:08 Discontinued 75 mg PO X1 ONE Vital Signs Vital signs: Vital Signs Temperature 97.9 F 12/20/24 08:32 Pulse Rate 60 12/20/24 08:32 Respiratory Rate 18 12/20/24 08:32 Blood Pressure 150/68 H 12/20/24 08:32 Pulse Oximetry (%) 98 12/20/24 08:32 Oxygen Delivery Method Room Air 12/20/24 08:32 Discharge Plan Plan Patient Disposition: HOME (Self Care) Patient condition on transfer: Stable Health Concerns: - Complete Flu treatment with Tamiflu for five days - Take tylenol 325mg as needed for pain, mantin adequate hydration around 2 L/day of fluid intake - Continue home medications -Lasix, Potassium, Lactulose - Titrate Lactulose to 3-4 Bowel Movements a day, take additional 20g as needed - Return to ED if your symptoms worsen - Follow up with PCP in 1 week please. Prescriptions/Referrals Prescriptions/Med Rec: New acetaminophen [Tylenol] 325 mg tablet 325 mg PO TID MDD do not exceed 2g/day PRN (Reason: pain) Qty: 20 0RF oseltamivir [Tamiflu] 75 mg capsule 75 mg PO BID 5 Days Qty: 10 0RF Continued lactulose 10 gram/15 mL solution 20 g PO TID Qty: 3785 0RF nicotine [Nicoderm CQ] 21 mg/24 hr patch 24 hour 21 mg topical Q24H Qty: 7 0RF furosemide 40 mg tablet 40 mg PO QDAY Patient Comments: TAKE 1 TABLET BY MOUTH EVERY DAY potassium chloride 10 mEq capsule, extended release 10 meq PO QDAY Patient Comments: TAKE 1 CAPSULE BY MOUTH EVERY DAY WITH FOOD Referrals: Francisco Styles MD [Primary Care Provider, Family Practice] - In 1 week Problem List Clinical Impression: Influenza Patient/Caregiver Discharge Instructions Education Materials: ED Influenza (Adult) Print Language: Citizen Of [place] Stand Alone Forms: Lynda Award Info., Patient Portal Info Letter MD Attestation Attestation I, Dr. Petty, have reviewed the history, exam, and assessment of the patient. I have evaluated the patient independently and agree with the plan of care documented by Dr. Hampton. All diagnostic studies were reviewed and discussed. I confirm the diagnosis as documented by the Resident. I was present during the Medical Decision Making for this patient. The patient's plan of care was created between myself and the Resident and consistent with our discussion of the patient's case. MDM Narrative [facility] hospital course: #Influenza A and B+ #Generalized weakness #Compensated liver cirrhosis, by history Patient presented with generalized weakness myalgias Patient was given Tylenol for pain management, tested positive for influenza A and B, started on Tamiflu. Patient did endorse taking his lactulose earlier this morning, ammonia levels 45 which are around his baseline. Was given lactulose prior to discharge, patient discharged outpatient on Tamiflu to complete treatment for 5 days, follow-up with PCP in 1 week. Patient educated to continue all medications along with Tamiflu, prescribe Tylenol 3 25 p.o. 3 times daily for myalgias, educated on not exceeding greater than [address] findings of 27 mm lesion medial right lobe discussed with the patient, patient to follow-up with PCP Finding of urinary bladder wall thickening discussed with patient, patient will follow-up with PCP Case discussed with Attending Physician Dr. Jovanny Hampton MD Internal Medicine PGY-2 Disclaimer: This note was dictated by speech recognition. Minor errors in clinical training specialist may be present due to voice recognition software. Clinical Information Provided by patient Medical Records Reviewed [facility] Meds/Rx Considered, not Ordered None Labs/Rad/Tests considered, not Ordered None Chronic Illness/Social Conditions Add or document further as needed: Compensated cirrhosis EKG EKG not done Lab Interpretation Labs: interpreted by pr Lab(s) interpretation(s): Labs significant for CBC RBC 4.36, platelet count 101, BUN 7, glucose 163, total bilirubin 2.3 (around baseline) alk phos 136, ammonia 45 (around patient baseline) urine glucose 1 positive, leukocyte esterase negative, no bacteria in urine Imaging Provider imaging interpretation(s): Chest x-ray negative for pneumonia Radiology reports / interpretation(s): CT abdomen pelvis shows cirrhosis, 27 mm lesion medial right lobe of liver, moderate renal scar formation, thickened urinary bladder Chest x-ray shows no active disease, no pneumonia Medication Administration(s) Medication Administration History Discontinued Medications Acetaminophen (Acetaminophen 325 Mg Tablet) 650 mg PO X1 ONE Stop: 12/20/24 09:43 Last Admin: 12/20/24 10:24 Dose: 650 mg Documented By: LEVY Lactulose (Lactulose Syrup 20 Gm/30 Ml Udc) 20 gm PO X1 ONE; Protocol Stop: 12/20/24 11:51 Last Admin: 12/20/24 11:58 Dose: 20 gm Documented By: LEVY Oseltamivir Phosphate (Oseltamivir 75 Mg Capsule) 75 mg PO X1 ONE Stop: 12/20/24 10:09 Last Admin: 12/20/24 10:24 Dose: 75 mg Documented By: VL Diagnosis Differential diagnosis: Myalgia secondary to flu, hepatic encephalopathy Most likely dx, and/or detailed dx discussion: Most likely diagnosis influenza A/B+ Dispositon Disposition: Discharge Home Disposition comments: See discharge recommendations as below
[2024-12-20] MEDS: LACTULOSE SYRUP 20 GM/30 ML UDC PO (11:58)
[2024-12-20 12:09] VITALS: BP 160/76; PULSE 84; RESP 18; TEMP 37; O2SAT 97
== END 2024-12-20 12:10 | disposition home or self-care (01) ==
PROVIDERS: Nurse Practitioner Family; Emergency Provider Emergency Medicine; PCP Family Medicine
DX: J11.1 Influenza due to unidentified influenza virus with other respiratory manifestations (principal); J44.9 Chronic obstructive pulmonary disease, unspecified; K21.9 Gastro-esophageal reflux disease without esophagitis; F32.A Depression, unspecified; F41.9 Anxiety disorder, unspecified
CPT/HCPCS: 36415; 71045; 74176; 80053; 81001; 82140; 83690; 83735; 85025; 85610; 85730; 87086; 87400; 87811; 99284; A9270

== ENCOUNTER 2025-01-08 19:16 | Emergency (ER) | payer MEDICARE, SELFPAY ==
[2025-01-08 19:18] VITALS: BMI 33.4
[2025-01-08 20:41] VITALS: BP 136/88; PULSE 72; RESP 20; TEMP 36.8; O2SAT 95
--- NOTE | 2025-01-08 20:44 | XR_ITS ---
Examination: Tibia-Fibula, left , 2 views Technique: Tibia-fibula AP lateral 2 views Date and time of exam: January 08, 2025, 2057 hrs. Indications: Lower leg pain one month no trauma Findings: Mild osteopenia. No fracture or dislocation. No cortical bone destruction Impression: No fracture. No cortical bone destruction
--- NOTE | 2025-01-08 20:44 | XR_ITS ---
Examination: Right wrist 2 views Technique one AP lateral right wrist 2 views Date and time: December 31, 2024, 2057 hrs. Indications: Wrist pain one month. Findings: Mild osteoarthritis radiocarpal intercarpal first carpometacarpal joints Small bony spur off the radial styloid No fracture Old fracture distal fifth metacarpal Impression: Mild diffuse osteoarthritis
[2025-01-08 21:17] LABS: Basophils # (Auto) 0.1 Thou/mm3 (0.0-0.2); Basophils % (Auto) 1 % (0-2.5); Eosinophils # (Auto) 0.2 Thou/mm3 (0.0-0.5); Eosinophils % (Auto) 3 % (0-10); Hematocrit 39.9 % (41.0-53.0); Hemoglobin 14.4 g/dL (13.5-16.0); Immature Granulocytes Auto 0.02 Thou/mm3 (0.00-0.00); Lymphocytes # (Auto) 1.9 Thou/mm3 (1.0-4.8); Lymphocytes % (Auto) 27 % (10-50); Mean Corpuscular HGB Conc 36.1 g/dl (31.0-37.0); Mean Corpuscular Hemoglobin 33.8 pg (25.0-35.0); Mean Corpuscular Volume 94 fL (80-100); Monocytes # (Auto) 0.7 Thou/mm3 (0.0-0.8); Monocytes % (Auto) 10 % (0-12); Neutrophils # (Auto) 4.1 Thou/mm3 (1.8-7.7); Neutrophils % (Auto) 59 % (37-80); Nucleated Red Blood Cell # 0.00 Thou/mm3 (0.00-0.00); Nucleated Red Blood Cell % 0 /100 WBC (0); Platelet Count 98 Thou/mm3 (140-440); RDW Standard Deviation 46.7 fL (35.1-43.9); Red Blood Count 4.26 Miln/mm3 (4.50-5.90); White Blood Count 6.9 Thou/mm3 (3.8-10.6)
[2025-01-08 21:41] LABS: Alanine Aminotransferase 28 U/L (10-49); Albumin, Serum 3.6 gm/dL (3.4-4.8); Albumin/Globulin Ratio 1.4 (1.2-2.2); Alkaline Phosphatase 141 U/L (46-116); Anion Gap 9 (7-16); Aspartate Amino Transferase 35 U/L (0-34); BUN/Creatinine Ratio 8 Ratio (12-20); Bilirubin,Total 2.1 mg/dL (0.3-1.2); Blood Urea Nitrogen 8 mg/dL (9-23); Calcium 9.6 mg/dL (8.3-10.6); Calcium (Corrected) 9.9 mg/dL (8.5-10.1); Carbon Dioxide 26.6 mMol/L (20.0-31.0); Chloride 108 mMol/L (98-107); Creatinine (Component) 1.0 mg/dL (0.6-1.3); Estimated Creatinine Clearance 85.5 mL/min (>60); Globulin 2.5 gm/dL (2.3-3.5); Glucose 130 mg/dL (74-106); Osmolality,Calculated 287 (275-295); Potassium 3.2 mMol/L (3.4-5.1); Sodium 144 mMol/L (136-145); Total Protein 6.1 gm/dL (5.7-8.2); eGFR > 60 See Note
--- NOTE | 2025-01-09 00:04 | PD.EDSKIN ---
ED Skin Abcess FB-RME/HPI General Chief complaint: Hand/Wrist Problems Stated complaint: RIGHT HAND PAIN, SORE ON LEFT LEG Time Seen by Provider: 01/08/25 19:22 Arrival date/time: 01/08/25 19:16 This is a case of 64-year-old male with history of cirrhosis came in in the emergency room with multiple symptoms patient initially came with right wrist pain radiating to the right hand no injury no trauma denies any numbness weakness or tingling sensation patient also complaining of infected wound on the left lateral leg which started 1 week prior to consult now due to redness and pain thus patient decided to sought consult here in the emergency room patient tetanus shot is up-to-date no swelling noted Limitations: no limitations Related Data Home Medications ?Medication ?Instructions ?Recorded ?Confirmed furosemide 40 mg tablet 40 mg PO QDAY 12/20/24 12/20/24 potassium chloride 10 mEq 10 meq PO QDAY 12/20/24 12/20/24 capsule,extended release Previous Rx's ?Medication ?Instructions ?Recorded nicotine 21 mg/24 hr daily 21 mg topical Q24H #7 ea 10/14/23 transdermal patch (Nicoderm CQ) lactulose 10 gram/15 mL oral 20 g (30 mL) PO TID #3,785 mL 10/27/24 solution acetaminophen 325 mg tablet 325 mg PO TID PRN pain #20 tabs 12/20/24 (Tylenol) clindamycin HCl 300 mg capsule 300 mg PO Q6H 10 days #40 caps 01/09/25 mupirocin 2 % topical ointment 1 applic topical TID #22 grams 01/09/25 sulfamethoxazole 800 1 tab PO BID #20 tabs 01/09/25 mg-trimethoprim 160 mg tablet (Bactrim DS) Allergies Allergy/AdvReac Type Severity Reaction Status Date / Time Penicillins Allergy Severe Rash Verified 12/20/24 08:23 Review of Systems Review of Systems Systems Reviewed: All systems reviewed, normal except as documented Constitutional Constitutional: Reports system reviewed and no additional complaints, except as documented and Reports as per HPI Cardiovascular Cardiovascular: Reports system reviewed and no additional complaints, except as documented and Reports as per HPI Respiratory Respiratory: Reports system reviewed and no additional complaints, except as documented and Reports as per HPI Gastrointestinal Gastrointestinal: Reports system reviewed and no additional complaints, except as documented and Reports as per HPI Genitourinary Genitourinary: Reports system reviewed and no additional complaints, except as documented and Reports as per HPI Musculoskeletal Musculoskeletal: Reports system reviewed and no additional complaints, except as documented and Reports as per HPI Neurologic Neurologic: Reports system reviewed and no additional complaints, except as documented Past Medical History Past Medical History NEUROLOGIC: Negative Seizures CARDIAC: Positive Cardiac Disorders, Edema and Hypotension; Negative Congestive Heart Failure RESPIRATORY: Positive Chronic Obstructive Pulmonary Disease (COPD), Bronchitis and Pneumonia GASTROINTESTINAL: Positive Gastrointestinal Disorders, Hepatitis, Cirrhosis, Gall Bladder Disease, Obstructive Bowel and Gastroesophageal Reflux Disease GENITOURINARY: Negative Renal Disease MUSCULOSKELETAL: Positive Musculoskeletal Disorders and Arthritis ENT: Positive Ear Infection and Deafness ENDOCRINE: Negative Diabetes Mellitus Type 1 or Diabetes Mellitus Type 2 PSYCHO/SOCIAL: Positive Depression and Anxiety OTHER HISTORY: Positive Chemotherapy and Cancer (NON-HODGKIN'S LYMPHOMA); Negative Blood Transfusions or Anesthesia Reactions Surgical History SURGICAL: Positive Tonsillectomy, Abdominal Surgery, Gastrostomy and Bowel Surgery Social History SMOKING STATUS: Current every day smoker ED Exam General Limitations: Present no limitations General appearance: Present alert, in no apparent distress and other (Patient is awake alert oriented not in distress nontoxic looking well-hydrated well-nourished) Head Head exam: Present atraumatic, normocephalic and normal inspection Eye Eye exam: Present normal appearance, PERRL and EOMI ENT ENT exam: Present normal exam, normal oropharynx and mucous membranes moist Neck Neck exam: Present normal inspection, full ROM and trachea midline; Absent tenderness, meningismus, lymphadenopathy or thyromegaly Chest Chest inspection: Present normal inspection and symmetric chest wall rise; Absent tenderness, rash or abscess Respiratory Respiratory exam: Present normal lung sounds bilaterally; Absent respiratory distress, wheezes, stridor, accessory muscle use or prolonged expiratory phase Cardiovascular Cardiovascular exam: Present regular rate, normal rhythm and normal heart sounds; Absent bradycardia, tachycardia, irregular rhythm, systolic murmur or diastolic murmur Abdominal Exam Abdominal exam: Present soft and normal bowel sounds; Absent distention, tenderness, guarding, rebound, rigidity, diminished bowel sounds, hyperactive bowel sounds, hypoactive bowel sounds or organomegaly Extremities Exam Extremities exam: Present normal inspection and full ROM Expanded Upper Extremity Exam Forearm/Wrist exam: Present tenderness (Mild tenderness around the right wrist with mild swelling no crepitation no deformity no redness no swelling ROM intact neurovascular); Absent swelling, abrasion, laceration, ecchymosis, deformity, crepitus, dislocation, erythema, tenderness over anatomical snuff box or pain with axial thumb loading Hand exam: Present normal inspection, full ROM and other (ROM intact neurovascular intact); Absent tenderness or swelling Expanded Lower Extremity Exam Lower leg exam: Present tenderness (Moderate tenderness on the lateral side of the left leg noted 2 cm infected wound no discharge no fluctuance none indurated no crepitation no deformity with redness noted suggestive of cellulitis no abscess ROM intact neurovascular intact); Absent swelling, abrasion, laceration, ecchymosis, deformity, crepitus, dislocation, erythema, palpable cord, Homans' sign or Achilles tendon intact Back Exam Back exam: Present normal inspection and full ROM Neurological Exam Neurological exam: Present alert, oriented X3, CN II-XII intact, normal gait and reflexes normal; Absent motor sensory deficit Psychiatric Psychiatric exam: Present normal affect and normal mood Skin Skin exam: Present warm, dry, intact, normal color and other (Infected wound on the left lateral lower leg with cellulitis) Course Quality Measures none Orders Category Date Time Status XR tibia fibula LT 2V Stat Exams 01/08/25 20:44 Completed XR wrist RT 2V Stat Exams 01/08/25 20:44 Completed CBC Stat Lab 01/08/25 20:56 Completed CMP [Comprehensive Metabolic Panel] Stat Lab 01/08/25 20:56 Completed Clindamycin Vial [Cleocin vial] Med 01/08/25 23:58 Discontinued 600 mg IM X1 ONE Potassium Chloride [K-Dur] Med 01/08/25 23:58 Discontinued 40 meq PO X1 ONE Vital Signs Vital signs: Vital Signs Temperature 98.2 F 01/08/25 20:41 Pulse Rate 72 01/08/25 20:41 Respiratory Rate 20 01/08/25 20:41 Blood Pressure 136/88 H 01/08/25 20:41 Pulse Oximetry (%) 95 01/08/25 20:41 Oxygen Delivery Method Room Air 01/08/25 20:41 Oxygen saturation is 95% in room air normal Skin / Abscess / Foreign Body MDM Narrative MDM Narrative:: This is a case of 64-year-old male with history of cirrhosis came in in the emergency room with multiple symptoms patient initially came with right wrist pain radiating to the right hand no injury no trauma denies any numbness weakness or tingling sensation patient also complaining of infected wound on the left lateral leg which started 1 week prior to consult now due to redness and pain thus patient decided to sought consult here in the emergency room patient tetanus shot is up-to-date no swelling noted physical examination patient is awake alert oriented not in distress nontoxic looking well-hydrated well-nourished noted able to moderate tenderness on the right wrist no crepitation no deformity no swelling ROM intact neurovascular intact hand exam is normal x-ray showed osteoarthritis patient refused any pain medication only wanted to place a splint a prefab splint was applied patient tolerated well neurovascular intact patient also noted to have a wound on the left lateral wrist tender to touch no crepitation no deformity no swelling no discharge but with redness suggestive of cellulitis ROM intact neurovascular intact blood test showed no leukocytosis no anemia kidney and liver function is normal patient is hypokalemic potassium is 3.2 thus K-Dur was given 40 mEq and patient will follow-up with PCP to repeat the level as an outpatient glucose is normal x-ray showed normal no osteomyelitis wound was cleaned with normal saline apply with triple antibiotic patient was given clindamycin here in the emergency room for infection patient was prescribed clindamycin and Bactrim for infection and mupirocin wound care daily is advised patient will follow-up with PCP in 2 days for reevaluation and for any worsening symptoms or any emergent concern return precaution in the ER was advised Patient was discharged with comfortable condition walking with stable gait. Patient verbalized no further complains explained diagnosis and answered patient question. Patient is comfortable with the proposed management plan including the need to follow up with his/her primary care physician and any specialist if applicable Discussed patient for any urgent condition or worsening sx, He/She needed to go to emergency room immediately or call 911. Patient acknowledge the responsibility to follow up as instructed and to monitor her/his symptoms. For any persistence of the symptoms for more than 3-5 days return precaution advised. Discussed the result of the test and was given printed discharge instruction Patient data External records reviewed:: [facility] previous records Clinical information provided by:: patient Social determinants that could affect healthcare access:: none Patient has the following chronic illnesses:: None How is presenting disease/condition affected by chronic disease/condition?: no chronic disease Evaluation data The following diagnostics were reviewed and interpreted by me:: lab results and radiology exam(s) Lab and/or radiology exams considered but not ordered:: Reviewed Interpretation Summary: Reviewed Medications / Prescriptions Medications or Prescriptions considered but not ordered:: Given Medication administrations:: Medication Administration History Discontinued Medications Clindamycin Phosphate (Clindamycin Phos Inj 150 Mg/Ml Vial 6 Ml) 600 mg IM X1 ONE Stop: 01/08/25 23:59 Potassium Chloride (Potassium Chloride 20 Meq Tabcr) 40 meq PO X1 ONE Stop: 01/08/25 23:59 Given Consultations Consultation(s) initiated? (list below): No Diagnosis Skin/Abscess Differential Diagnosis: abscess of skin or subcutaneous tissue and cellulitis Most likely diagnosis given after review of the tests above:: Cellulitis left leg secondary to infected wound Admission Indicated Admission indicated?: not indicated Explain why admission is indicated or not indicated:: Not indicated Admission Request Was there a request for admission?: No Admission Attestation Admission request attestation: Not indicated Disposition Plan Disposition Plan: Discharge Discharge Attestation Discharge Attestation: The patient and all family members were given an opportunity to ask questions and understood the discharge instructions. Discharge instructions specifically effects, indications for sooner follow up or return to the emergency department, and the expected course of current diagnosis. Patient condition: Stable Discharge Plan Plan Patient Disposition: HOME (Self Care) Patient condition on transfer: Stable Prescriptions/Referrals Prescriptions/Med Rec: New clindamycin HCl 300 mg capsule 300 mg PO Q6H 10 Days Qty: 40 0RF sulfamethoxazole-trimethoprim [Bactrim DS] 800-160 mg tablet 1 tab PO BID Qty: 20 0RF mupirocin 2 % ointment 1 applic topical TID Qty: 22 0RF No Action lactulose 10 gram/15 mL solution 20 g PO TID Qty: 3785 0RF nicotine [Nicoderm CQ] 21 mg/24 hr patch 24 hour 21 mg topical Q24H Qty: 7 0RF furosemide 40 mg tablet 40 mg PO QDAY Patient Comments: TAKE 1 TABLET BY MOUTH EVERY DAY potassium chloride 10 mEq capsule, extended release 10 meq PO QDAY Patient Comments: TAKE 1 CAPSULE BY MOUTH EVERY DAY WITH FOOD acetaminophen [Tylenol] 325 mg tablet 325 mg PO TID MDD do not exceed 2g/day PRN (Reason: pain) Qty: 20 0RF Referrals: Francisco Styles MD [Primary Care Provider, Family Practice] - In 1 week Problem List Clinical Impression: Wrist pain, right, Osteoarthritis of right wrist, Infected wound, Cellulitis of left leg, Hypokalemia Patient/Caregiver Discharge Instructions Education Materials: Wound Care, ED Cellulitis, ED Hypokalemia, ED Osteoarthritis, ED RICE Additional Instructions: Follow-up with your primary care physician in 2 days for reevaluation and to be referred to industrial machine operator for further evaluation and treatment of your right wrist pain only Tylenol as needed for pain return to the emergency room in 2 days for reevaluation and wound check of the infected wound on the left leg and cellulitis worsening symptoms or any emergent concern call 911 or go to the nearest emergency room take your medication as directed finish the course of antibiotic keep the wound clean and dry RICE treatment advised keep the splint on the right wrist advised follow-up with your primary care physician to monitor your potassium level as an outpatient Print Language: Portuguese Stand Alone Forms: Lynda Award Info., Patient Portal Info Letter PA/ORE SMELTER Supervising Physician PA/ORE SMELTER Supervising Physician: Dr. Cristhian Sylvester
[2025-01-09] MEDS: CLINDAMYCIN PHOS INJ 150 MG/ML VIAL 6 ML 600 MG IM (00:22)
== END 2025-01-09 00:30 | disposition home or self-care (01) ==
PROVIDERS: Nurse Practitioner Family; Emergency Provider Emergency Medicine; PCP Family Medicine
DX: L03.116 Cellulitis of left lower limb (principal); M19.031 Primary osteoarthritis, right wrist; E87.6 Hypokalemia
CPT/HCPCS: 36415; 73100; 73590; 80053; 85025; 96372; 99283; J0736; A9270

== ENCOUNTER 2025-01-16 14:15 | Emergency (ER) | payer MEDICARE, SELFPAY ==
[2025-01-16 14:31] VITALS: BP 160/74; PULSE 98; RESP 20; TEMP 36.7; O2SAT 96
--- NOTE | 2025-01-16 14:38 | EKG_ITS ---
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
--- NOTE | 2025-01-16 14:38 | XR_ITS ---
Examination: CT brain head without contrast. 2-D sagittal coronal reconstructions Date and time of exam:January 16, 2025, 1626 hours COMPARISON: June 27, 2024 INDICATIONS: Dizziness and lightheadedness episodes today CTDI: vol (mGy):55.6 DLP: (mGycm):1149 Technique: Multiple CT axial sections of the brain have been obtained, 5 mm slice thickness. Contrast has not been administered. 2-D sagittal, coronal reconstructions have been obtained Low dose protocols were performed. One or more of the following dose reduction techniques were used; automated exposure control, adjustment of the mA and/or KV according to patient size, use of iterative reconstruction technique. Findings: No significant ventricular enlargement. Intra-axial or extra-axial hemorrhage density is not seen. No mass effect or midline shift Basal cisterns are not remarkable. Fourth ventricle is midline. Cranial vault intact. Impression: Negative for acute hemorrhage, mass effect or midline shift Advise clinical correlation follow-up accordingly
--- NOTE | 2025-01-16 14:39 | PD.EDRME ---
Rapid Medical Screening Exam RME Arrival date/time: 01/16/25 14:15 This is a case of 64-year-old male with history of cirrhosis came into the emergency room due to dizziness and lightheadedness for 3 days patient denies any head injury denies any blurring of vision but with headache persistence of the symptoms this patient decided to start consult here in the emergency room Chief Complaint: Dizziness Time Seen by Provider: 01/16/25 14:34 Vital signs: Vital Signs Temperature 98.0 F 01/16/25 14:31 Pulse Rate 98 01/16/25 14:31 Respiratory Rate 20 01/16/25 14:31 Blood Pressure 160/74 H 01/16/25 14:31 Pulse Oximetry (%) 96 01/16/25 14:31 Oxygen Delivery Method Room Air 01/16/25 14:31
[2025-01-16 15:01] LABS: Basophils # (Auto) 0.1 Thou/mm3 (0.0-0.2); Basophils % (Auto) 1 % (0-2.5); Eosinophils # (Auto) 0.2 Thou/mm3 (0.0-0.5); Eosinophils % (Auto) 3 % (0-10); Hematocrit 38.0 % (41.0-53.0); Hemoglobin 14.0 g/dL (13.5-16.0); Immature Granulocytes Auto 0.02 Thou/mm3 (0.00-0.00); Lymphocytes # (Auto) 1.9 Thou/mm3 (1.0-4.8); Lymphocytes % (Auto) 28 % (10-50); Mean Corpuscular HGB Conc 36.8 g/dl (31.0-37.0); Mean Corpuscular Hemoglobin 34.8 pg (25.0-35.0); Mean Corpuscular Volume 95 fL (80-100); Monocytes # (Auto) 0.8 Thou/mm3 (0.0-0.8); Monocytes % (Auto) 12 % (0-12); Neutrophils # (Auto) 3.9 Thou/mm3 (1.8-7.7); Neutrophils % (Auto) 56 % (37-80); Nucleated Red Blood Cell # 0.00 Thou/mm3 (0.00-0.00); Nucleated Red Blood Cell % 0 /100 WBC (0); Platelet Count 101 Thou/mm3 (140-440); RDW Standard Deviation 48.3 fL (35.1-43.9); Red Blood Count 4.02 Miln/mm3 (4.50-5.90); White Blood Count 6.9 Thou/mm3 (3.8-10.6)
[2025-01-16 15:18] LABS: Alanine Aminotransferase 50 U/L (10-49); Albumin, Serum 3.4 gm/dL (3.4-4.8); Albumin/Globulin Ratio 1.5 (1.2-2.2); Alkaline Phosphatase 156 U/L (46-116); Anion Gap 9 (7-16); Aspartate Amino Transferase 48 U/L (0-34); BUN/Creatinine Ratio 7 Ratio (12-20); Bilirubin,Total 1.9 mg/dL (0.3-1.2); Blood Urea Nitrogen 8 mg/dL (9-23); Calcium 8.6 mg/dL (8.3-10.6); Calcium (Corrected) 9.1 mg/dL (8.5-10.1); Carbon Dioxide 28.3 mMol/L (20.0-31.0); Chloride 107 mMol/L (98-107); Creatinine (Component) 1.2 mg/dL (0.6-1.3); Globulin 2.3 gm/dL (2.3-3.5); Glucose 126 mg/dL (74-106); Osmolality,Calculated 287 (275-295); Potassium 3.4 mMol/L (3.4-5.1); Sodium 144 mMol/L (136-145); Total Protein 5.7 gm/dL (5.7-8.2); Troponin I < 0.020 ng/mL (0.0-0.045); eGFR > 60 See Note
[2025-01-16 15:22] LABS: Ammonia 114 uMol/L (11-32)
[2025-01-16 15:39] LABS: Collection Type, Urine Clean Catch; Squamous Epithelial Cell,Urine 0 /hpf (0-5)
[2025-01-16 15:42] LABS: Bilirubin,Urine Negative (Negative); Blood,Urine Negative (Negative); Clarity,Urine Clear (Clear/Hazy); Color,Urine Yellow (Lt Yel-Yel); Glucose, Urine 3+ (Negative); Ketones,Urine Negative (Negative); Leukocyte Esterase,Urine Negative (Negative); Nitrite,Urine Negative (Negative); PH,Urine 6.5 (5.0-7.0); Protein,Urine Negative (Neg - Trace); RBC,Urine < 1 /hpf (0-3); Specific Gravity,Urine 1.015 (1.001-1.035); Urobilinogen,Urine 2.0 mg/dL (0.0-1.0); WBC,Urine 1 /hpf (0-5)
[2025-01-16 18:43] VITALS: BP 185/74; PULSE 62; RESP 17; TEMP 36.8; O2SAT 99
--- NOTE | 2025-01-16 19:07 | PD.EDADULT ---
ED General RME/HPI General Chief complaint: Dizziness Stated complaint: TIRED, DIZZY, PAIN L) LEG Time Seen by Provider: 01/16/25 14:34 Arrival date/time: 01/16/25 14:15 RME / HPI RME / HPI narrative: 01/16/25 14:15 Brian is a 64 y/o male with PMHx of Cirrhosis, Hep C and Non-Hodgkin Lymphoma (In remission) and comes in for an evaluation of dizziness, weakness and felt like his ammonia level was going up. Patient reports that he has been worsening for the past couple of days and feels like his ammonia level is going up. He says that he was recently here in the ER a couple of months ago for similar kind of symptoms. He says he has been dealing with cirrhosis for a long time. He says that his primary care doctor is Dr. Styles who manages his cirrhosis medicines including lactulose 20 g, Lasix 40 mg. He does not take rifaximin or spironolactone. He reports minimal abdominal pain at this time. He denies having a headache. He reports having 2-3 bowel movements a day at home. He also says that he takes his medicines as prescribed. He has no other complaints at this time. Related Data Home Medications ?Medication ?Instructions ?Recorded ?Confirmed furosemide 40 mg tablet 40 mg PO QDAY 12/20/24 12/20/24 potassium chloride 10 mEq 10 meq PO QDAY 12/20/24 12/20/24 capsule,extended release Previous Rx's ?Medication ?Instructions ?Recorded nicotine 21 mg/24 hr daily 21 mg topical Q24H #7 ea 10/14/23 transdermal patch (Nicoderm CQ) lactulose 10 gram/15 mL oral 20 g (30 mL) PO TID #3,785 mL 10/27/24 solution acetaminophen 325 mg tablet 325 mg PO TID PRN pain #20 tabs 12/20/24 (Tylenol) clindamycin HCl 300 mg capsule 300 mg PO Q6H 10 days #40 caps 01/09/25 mupirocin 2 % topical ointment 1 applic topical TID #22 grams 01/09/25 sulfamethoxazole 800 1 tab PO BID #20 tabs 01/09/25 mg-trimethoprim 160 mg tablet (Bactrim DS) albuterol sulfate 90 mcg/actuation 1 inh inhalation QID PRN shortness 01/16/25 aerosol inhaler (Ventolin HFA) of breath or wheezing 1 month #6.7 grams spironolactone 25 mg tablet 25 mg PO BID 2 weeks #28 tabs 01/16/25 Allergies Allergy/AdvReac Type Severity Reaction Status Date / Time Penicillins Allergy Severe Rash Verified 01/16/25 14:19 Review of Systems Review of Systems Narrative Review of Systems: 12 point ROS reviewed and is otherwise negative unless stated directly in the HPI ED Exam Narrative Physical exam: General: AAOx3, NAD, elderly male HEENT: Moist mucous membranes, conjunctiva clear, EOMI, PERRLA, poor dentition Cardiovascular: S1, S2, radial pulses +2 bilat, RRR Pulmonary: CTAB bilat no cough, no wheezing GI: Slightly distended abdomen, slight tenderness to palpation, some abdominal scars, slight fluid wave shift Extremities: +1 pitting edema bilaterally, venous stasis present in both lower extremities bilaterally Neuro: AAOx3, no focal motor or sensory deficits in the UE or LE bilat Psych: Good judgement, thought and behavior Course Quality Measures none Orders Category Date Time Status EKG (ED ONLY) *Do not use* NOW Care 01/16/25 14:[address] head/brain wo con Stat Exams 01/16/25 14:38 Completed EKG (ED Only) Stat Exams 01/16/25 14:38 Draft Ammonia Stat Lab 01/16/25 14:53 Completed CBC Stat Lab 01/16/25 14:53 Completed Comprehensive Metabolic Panel Stat Lab 01/16/25 14:53 Completed Troponin I Stat Lab 01/16/25 14:53 Completed Urinalysis Stat Lab 01/16/25 15:15 Completed Furosemide Inj [Lasix Inj] Med 01/16/25 18:57 Discontinued 40 mg IVP X1 ONE Lactulose Syrup [Enulose Syrup] Med 01/16/25 19:05 Discontinued 20 gm PO X1 ONE Potassium Chloride [K-Dur] Med 01/16/25 19:06 Discontinued 20 meq PO X1 ONE Spironolactone [Aldactone] Med 01/16/25 19:05 Discontinued 25 mg PO X1 ONE Vital Signs Vital signs: Vital Signs Temperature 98.0 F 01/16/25 14:31 Pulse Rate 98 01/16/25 14:31 Respiratory Rate 20 01/16/25 14:31 Blood Pressure 160/74 H 01/16/25 14:31 Pulse Oximetry (%) 96 01/16/25 14:31 Oxygen Delivery Method Room Air 01/16/25 14:31 Discharge Plan Plan Patient Disposition: HOME (Self Care) Prescriptions/Referrals Prescriptions/Med Rec: New spironolactone 25 mg tablet 25 mg PO BID 14 Days Qty: 28 0RF Rx Instructions: Take one tablet by mouth twice a day albuterol sulfate [Ventolin HFA] 90 mcg/actuation HFA aerosol inhaler 1 inh inhalation QID PRN (Reason: shortness of breath or wheezing) 30 Days Qty: 6.7 0RF No Action lactulose 10 gram/15 mL solution 20 g PO TID Qty: 3785 0RF nicotine [Nicoderm CQ] 21 mg/24 hr patch 24 hour 21 mg topical Q24H Qty: 7 0RF furosemide 40 mg tablet 40 mg PO QDAY Patient Comments: TAKE 1 TABLET BY MOUTH EVERY DAY potassium chloride 10 mEq capsule, extended release 10 meq PO QDAY Patient Comments: TAKE 1 CAPSULE BY MOUTH EVERY DAY WITH FOOD acetaminophen [Tylenol] 325 mg tablet 325 mg PO TID MDD do not exceed 2g/day PRN (Reason: pain) Qty: 20 0RF clindamycin HCl 300 mg capsule 300 mg PO Q6H 10 Days Qty: 40 0RF sulfamethoxazole-trimethoprim [Bactrim DS] 800-160 mg tablet 1 tab PO BID Qty: 20 0RF mupirocin 2 % ointment 1 applic topical TID Qty: 22 0RF Referrals: No Primary/Family,Physician [Primary Care Provider] - In 1 week Problem List Clinical Impression: Cirrhosis Patient/Caregiver Discharge Instructions Education Materials: ED Cirrhosis Additional Instructions: Discharge instructions Follow-up with your PCP within 1 week I am prescribing you spironolactone as this is for your liver, take as prescribed I am prescribing you an inhaler for your COPD, take as prescribed Make sure you take your Lasix and lactulose as prescribed. Ensure to have 4-5 bowel movements a day. It appears that you have a 27 mm lesion in the medial right lobe of your liver. Talk to your PCP in regards to possibly getting an MRI for further evaluation. Take your medicines as prescribed Return to ED if your symptoms worsen or return Print Language: Vietnamese Stand Alone Forms: Lynda Award Info., Patient Portal Info Letter MDM Narrative MDM hospital course (for use when minimal MDM required): 1909: Spoke with Dr. Perez, GI who recommends patient to get Aldactone 25 mg twice daily outpatient, continue with Lasix and lactulose. Patient is supposed to have 4-5 bowel movements a day for management of decompensated liver cirrhosis. Will give Aldactone 25 mg right now with Lasix 40 mg IV, potassium 20 mEq oral, and also lactulose 20 g. Will send patient home EKG Interpretation EKG #1: EKG Interpretation: Sinus rhythm, heart rate of 71, RBBB in V1 and V2, QT 460, no ST changes Medication Administration(s) Medication Administration History Discontinued Medications Furosemide (Furosemide Inj 10 Mg/Ml 4ml Vial) 40 mg IVP X1 ONE Stop: 01/16/25 18:58 Last Admin: 01/16/25 19:34 Dose: 40 mg Documented By: LEAH Lactulose (Lactulose Syrup 20 Gm/30 Ml Udc) 20 gm PO X1 ONE; Protocol Stop: 01/16/25 19:06 Last Admin: 01/16/25 19:34 Dose: 20 gm Documented By: LEAH Potassium Chloride (Potassium Chloride 20 Meq Tabcr) 20 meq PO X1 ONE Stop: 01/16/25 19:07 Last Admin: 01/16/25 19:34 Dose: 20 meq Documented By: LEAH Spironolactone (Spironolactone 25 Mg Tablet) 25 mg PO X1 ONE Stop: 01/16/25 19:06 Diagnosis Diagnoses ruled out and/or further discussions: Decompensated liver cirrhosis, ascites, SBP, gastroenteritis, dehydration
[2025-01-16 19:26] VITALS: BP 107/46; PULSE 62; RESP 17; TEMP 37.2; O2SAT 98
[2025-01-16 19:34] VITALS: BP 137/61; PULSE 70
[2025-01-16] MEDS: LACTULOSE SYRUP 20 GM/30 ML UDC PO (19:34)
[2025-01-16] MEDS: FUROSEMIDE INJ 10 MG/ML 4ML VIAL 40 MG IVP (19:34)
[2025-01-16 19:42] VITALS: BP 137/61; PULSE 70
[2025-01-16] MEDS: SPIRONOLACTONE 25 MG TABLET PO (19:42)
[2025-01-16 20:07] VITALS: BP 122/43; PULSE 64; RESP 19; TEMP 37.2; O2SAT 98
== END 2025-01-16 20:09 | disposition home or self-care (01) ==
PROVIDERS: Nurse Practitioner Family; Emergency Provider Emergency Medicine
DX: K74.60 Unspecified cirrhosis of liver (principal); R42 Dizziness and giddiness; R53.1 Weakness; I45.10 Unspecified right bundle-branch block; I44.4 Left anterior fascicular block; B19.20 Unspecified viral hepatitis C without hepatic coma; C85.9A Non-Hodgkin lymphoma, unspecified, in remission
CPT/HCPCS: 36415; 70450; 80053; 81001; 82140; 84484; 85025; 93005; 96374; 99284; J1938; A9270

== ENCOUNTER → 2025-01-25 | Outpatient (CLI) | payer BC, SELFPAY ==
[2025-01-25 17:04] LABS: Anion Gap 9 (7-16); BUN/Creatinine Ratio 8 Ratio (12-20); Blood Urea Nitrogen 7 mg/dL (9-23); Calcium 9.1 mg/dL (8.3-10.6); Carbon Dioxide 27.1 mMol/L (20.0-31.0); Chloride 105 mMol/L (98-107); Creatinine (Component) 0.9 mg/dL (0.6-1.3); Glucose 168 mg/dL (74-106); Osmolality,Calculated 283 (275-295); Potassium 3.9 mMol/L (3.4-5.1); Sodium 141 mMol/L (136-145); eGFR > 60 See Note
== END | disposition home or self-care (01) ==
LOC: COPL 15:52
PROVIDERS: PCP Family Medicine; Referring Provider Family Medicine; Visit Provider Family Medicine
DX: I10 Essential (primary) hypertension (principal); K76.82 Hepatic encephalopathy
CPT/HCPCS: 36415; 80048

== ENCOUNTER 2025-02-04 12:07 | Observation (INO) | payer BC, SELFPAY ==
[2025-02-04] VITALS (8 sets, daily range): BP systolic 112–163; BP diastolic 48–92; PULSE 61–67; RESP 16–95; TEMP 36.4–36.8; O2SAT 95–100; BMI 31.7
--- NOTE | 2025-02-04 12:23 | XR_ITS ---
Examination: CT brain head without contrast. 2-D sagittal coronal reconstructions Date and time of exam: February 04, 2025, 12:42 p.m. INDICATIONS: Dizziness and headaches today CTDI: vol (mGy): 51.6 DLP: (mGycm): 996 Technique: Multiple CT axial sections of the brain have been obtained, 5 mm slice thickness. Contrast has not been administered. 2-D sagittal, coronal reconstructions have been obtained Low dose protocols were performed. One or more of the following dose reduction techniques were used; automated exposure control, adjustment of the mA and/or KV according to patient size, use of iterative reconstruction technique. Findings: No significant ventricular enlargement. Intra-axial or extra-axial hemorrhage density is not seen. No mass effect or midline shift Basal cisterns are not remarkable. Fourth ventricle is midline. Cranial vault intact. Impression: Negative for acute hemorrhage, mass effect or midline shift Advise clinical correlation and follow-up accordingly
--- NOTE | 2025-02-04 12:23 | EKG_ITS ---
[facility] Test Date: 2025-02-04 Pat Name: SHAHAB HARMON Department: Room: - Gender: Male Range Mounter: : 1960 Requested By: Jitendra Haddad (RACHEL) Order Number: [id number] Reading MD: Jitendra Haddad (AUTOMATION AND CONTROLS MANAGER) Measurements Intervals [place] Rate: 66 P: 15 RI: 146 QRS: -52 QRSD: 168 T: 38 QT: 487 QTc: 512 Interpretive Statements SINUS RHYTHM WITH SINUS ARRHYTHMIA RIGHT BUNDLE BRANCH BLOCK [120+ ms QRS DURATION, UPRIGHT V1, 40+ ms S IN I/aVL/V4/V5/V6] LEFT ANTERIOR FASCICULAR BLOCK [QRS AXIS <= -45, QR IN I, RS IN II] Compared to ECG 01/16/2025 14:40:32 Myocardial infarct finding no longer present /store/S0/[id number]/ecg/[id number].pdf
[2025-02-04 13:18] LABS: Basophils # (Auto) 0.0 Thou/mm3 (0.0-0.2); Basophils % (Auto) 1 % (0-2.5); Eosinophils # (Auto) 0.2 Thou/mm3 (0.0-0.5); Eosinophils % (Auto) 3 % (0-10); Hematocrit 37.6 % (41.0-53.0); Hemoglobin 13.6 g/dL (13.5-16.0); Immature Granulocytes Auto 0.01 Thou/mm3 (0.00-0.00); Lymphocytes # (Auto) 1.8 Thou/mm3 (1.0-4.8); Lymphocytes % (Auto) 32 % (10-50); Mean Corpuscular HGB Conc 36.2 g/dl (31.0-37.0); Mean Corpuscular Hemoglobin 34.3 pg (25.0-35.0); Mean Corpuscular Volume 95 fL (80-100); Monocytes # (Auto) 0.6 Thou/mm3 (0.0-0.8); Monocytes % (Auto) 10 % (0-12); Neutrophils # (Auto) 3.1 Thou/mm3 (1.8-7.7); Neutrophils % (Auto) 54 % (37-80); Nucleated Red Blood Cell # 0.00 Thou/mm3 (0.00-0.00); Nucleated Red Blood Cell % 0 /100 WBC (0); Platelet Count 91 Thou/mm3 (140-440); RDW Standard Deviation 47.0 fL (35.1-43.9); Red Blood Count 3.96 Miln/mm3 (4.50-5.90); White Blood Count 5.7 Thou/mm3 (3.8-10.6)
[2025-02-04 13:26] LABS: Alanine Aminotransferase 35 U/L (10-49); Albumin, Serum 3.7 gm/dL (3.4-4.8); Albumin/Globulin Ratio 1.9 (1.2-2.2); Alkaline Phosphatase 156 U/L (46-116); Anion Gap 10 (7-16); Aspartate Amino Transferase 46 U/L (0-34); BUN/Creatinine Ratio 8 Ratio (12-20); Bilirubin,Total 2.0 mg/dL (0.3-1.2); Blood Urea Nitrogen 7 mg/dL (9-23); Calcium 8.3 mg/dL (8.3-10.6); Calcium (Corrected) 8.5 mg/dL (8.5-10.1); Carbon Dioxide 25.1 mMol/L (20.0-31.0); Chloride 111 mMol/L (98-107); Creatinine (Component) 0.9 mg/dL (0.6-1.3); Estimated Creatinine Clearance 95.5 mL/min (>60); Globulin 1.9 gm/dL (2.3-3.5); Glucose 126 mg/dL (74-106); INR 1.3 (0.9-1.3); Magnesium 1.7 mg/dL (1.6-2.6); Osmolality,Calculated 290 (275-295); Partial Thromboplastin Time 30.2 Seconds (22.0-36.0); Potassium 3.5 mMol/L (3.4-5.1); Prothrombin Time 13.3 Seconds (9.0-12.2); Sodium 146 mMol/L (136-145); Total Protein 5.6 gm/dL (5.7-8.2); Troponin I < 0.020 ng/mL (0.0-0.045); eGFR > 60 See Note
[2025-02-04 13:28] LABS: Ammonia 114 uMol/L (11-32)
[2025-02-04 13:53] LABS: B-Type Natriuretic Peptide 91 pg/mL (0-100)
--- NOTE | 2025-02-04 14:35 | PD.EDAMS ---
Altered Mental Status RME/HPI General Chief Complaint: General Adult/Misc Complain Stated Complaint: SHAKELY, LIGHT HEADED, CONFUSED Time Seen by Provider: 02/04/25 12:37 Arrival date/time: 02/04/25 12:07 RME / HPI RME / HPI narrative: DR. ALMAZAN MAIN ED EVALUATION: 64-year-old male with past medical history of COPD and liver cirrhosis presents to the Emergency Department for confusion and generalized weakness. The patient states, I?m confused, wobbly, and shaky . He reports being compliant with his lactulose. Denies chest pain, shortness of breath, nausea, vomiting, or abdominal pain. No recent falls or trauma. No fever, chills, or new medications. Related Data Home Medications ?Medication ?Instructions ?Recorded ?Confirmed furosemide 40 mg tablet 40 mg PO QDAY 12/20/24 12/20/24 potassium chloride 10 mEq 10 meq PO QDAY 12/20/24 12/20/24 capsule,extended release Previous Rx's ?Medication ?Instructions ?Recorded nicotine 21 mg/24 hr daily 21 mg topical Q24H #7 ea 10/14/23 transdermal patch (Nicoderm CQ) lactulose 10 gram/15 mL oral 20 g (30 mL) PO TID #3,785 mL 10/27/24 solution acetaminophen 325 mg tablet 325 mg PO TID PRN pain #20 tabs 12/20/24 (Tylenol) mupirocin 2 % topical ointment 1 applic topical TID #22 grams 01/09/25 sulfamethoxazole 800 1 tab PO BID #20 tabs 01/09/25 mg-trimethoprim 160 mg tablet (Bactrim DS) albuterol sulfate 90 mcg/actuation 1 inh inhalation QID PRN shortness 01/16/25 aerosol inhaler (Ventolin HFA) of breath or wheezing 1 month #6.7 grams Allergies Allergy/AdvReac Type Severity Reaction Status Date / Time Penicillins Allergy Severe Rash Verified 01/16/25 14:19 Review of Systems Review of Systems Systems Reviewed: All systems reviewed, normal except as documented Past Medical History Past Medical History CARDIAC: Positive Cardiac Disorders, Edema and Hypotension RESPIRATORY: Positive Chronic Obstructive Pulmonary Disease (COPD), Bronchitis and Pneumonia GASTROINTESTINAL: Positive Gastrointestinal Disorders, Hepatitis, Cirrhosis, Gall Bladder Disease, Obstructive Bowel and Gastroesophageal Reflux Disease MUSCULOSKELETAL: Positive Musculoskeletal Disorders and Arthritis ENT: Positive Ear Infection and Deafness PSYCHO/SOCIAL: Positive Depression and Anxiety OTHER HISTORY: Positive Chemotherapy and Cancer Surgical History SURGICAL: Positive Tonsillectomy, Abdominal Surgery, Gastrostomy and Bowel Surgery Social History SMOKING STATUS: Never smoker SUBSTANCE USE: does not use ALCOHOL: Never ED Exam Narrative Physical exam: GENERAL APPEARANCE: alert and oriented x 4, well-developed, well-nourished, no acute distress VITALS: All vitals were reviewed and the pulse ox is 98% on room air, which is normal according to my interpretation. HEENT: Normocephalic, atraumatic; pupils equal, round, reactive to light; EOMI; mucous membranes pink, moist; oropharynx clear NECK: Supple LUNGS: CTABL; no wheezes, no rales, no rhonchi HEART: Regular rate, regular rhythm; normal S1, S2; no murmurs ABDOMEN: Mildly distended, soft, non-tender, no guarding or rebound; bowel sounds present BACK: no CVA tenderness EXTREMITIES: atraumatic; no edema NEUROLOGIC: awake; alert and oriented x4; cranial nerves II-XII grossly intact; no focal sensory or motor deficits PSYCHIATRIC: appropriate mood and affect SKIN: warm, dry, normal color; no rashes Course Quality Measures none Orders Category Date Time Status Patient Condition Routine Admission 02/04/25 15:[address] in Observation Status Routine Admission 02/04/25 15:20 Active Activity as Tolerated Routine Care 02/04/25 15:21 Ordered Continuous Pulse Oximetry NOW Care 02/04/25 15:19 Completed EKG (ED ONLY) *Do not use* NOW Care 02/04/25 12:23 Completed Miscellaneous Nursing Order NOW Care 02/04/25 15:40 Active Notify provider NEEDED Care 02/04/25 15:20 Active Sequential Compression Device QSHIFT Care 02/04/25 15:25 Active Strict Intake and Output Routine Care 02/04/25 15:21 Ordered Diet Low Sodium (2gm) Diet 02/04/[address] head/brain wo con Stat Exams 02/04/25 12:23 Completed EKG (ED Only) Stat Exams 02/04/25 12:23 Draft US abdomen Routine Exams 02/04/25 15:29 Taken Ammonia Stat Lab 02/04/25 12:57 Completed B-Type Natriuretic Peptide Stat Lab 02/04/25 12:57 Completed CBC AM DRAW Lab 02/05/25 05:00 Ordered CBC AM DRAW Lab 02/06/25 05:00 Ordered CBC AM DRAW Lab 02/07/25 05:00 Ordered CBC Stat Lab 02/04/25 12:57 Completed Comprehensive Metabolic Panel AM DRAW Lab 02/05/25 05:00 Ordered Comprehensive Metabolic Panel AM DRAW Lab 02/06/25 05:00 Ordered Comprehensive Metabolic Panel AM DRAW Lab 02/07/25 05:00 Ordered Comprehensive Metabolic Panel Stat Lab 02/04/25 12:57 Completed Drug Screen,Urine Stat Lab 02/04/25 12:23 Ordered Lipid Panel AM DRAW Lab 02/05/25 05:00 Ordered Magnesium AM DRAW Lab 02/05/25 05:00 Ordered Magnesium AM DRAW Lab 02/06/25 05:00 Ordered Magnesium AM DRAW Lab 02/07/25 05:00 Ordered Magnesium Stat Lab 02/04/25 12:57 Completed Partial Thromboplastin Time Stat Lab 02/04/25 12:57 Completed Phosphorous AM DRAW Lab 02/05/25 05:00 Ordered Phosphorous AM DRAW Lab 02/06/25 05:00 Ordered Phosphorous AM DRAW Lab 02/07/25 05:00 Ordered Prothrombin Time with INR Stat Lab 02/04/25 12:57 Completed Troponin I Stat Lab 02/04/25 12:57 Completed Urinalysis, C/S if Indicated Stat Lab 02/04/25 12:23 Ordered Albuterol/Ipratr Rt Rosa [Duoneb Rt Rosa] Med 02/04/25 15:19 Active 3 ml INH Q6HRRT PRN Furosemide [Lasix] Med 02/05/25 09:00 Active 40 mg PO QDAY Ibuprofen Tab [Motrin Tab] Med 02/04/25 15:19 Active 400 mg PO Q6HR PRN Lactulose Syrup [Enulose Syrup] Med 02/04/25 15:30 Active 30 gm PO TID Nicotine Patch [Nicoderm Patch] Med 02/04/25 15:40 Active 21 mg TOP QDAY Ondansetron Inj [Zofran Inj] Med 02/04/25 15:25 Active 4 mg IVP Q6H PRN POTASSIUM CHL 10% Liq 15 ML Med 02/05/25 09:00 Active 10 meq PO QDAY Pantoprazole [Protonix] Med 02/04/25 15:30 Active 40 mg PO QDAY Spironolactone [Aldactone] Med 02/04/25 21:00 Active 25 mg PO BID Code Status Routine Oth 02/04/25 15:19 Ordered Oxygen Delivery PRN RT 02/04/25 15:19 Active Vital Signs Vital signs: Vital Signs Temperature 97.7 F 02/04/25 12:21 Pulse Rate 66 02/04/25 12:21 Respiratory Rate 16 02/04/25 12:21 Blood Pressure 148/81 H 02/04/25 12:21 Pulse Oximetry (%) 95 02/04/25 12:21 Oxygen Delivery Method Room Air 02/04/25 12:21 Altered Mental Status MDM Narrative MDM Narrative:: I, Heidi Cruz, afshin scribing for and in the presence of Dr. Almazan. Patient data External records reviewed:: [facility] previous records Clinical information provided by:: patient Social determinants that could affect healthcare access:: none Patient has the following chronic illnesses:: COPD and liver cirrhosis How is presenting disease/condition affected by chronic disease/condition?: exacerbated by Evaluation data The following diagnostics were reviewed and interpreted by me:: lab results, radiology exam(s) and EKG tracing(s) (My interpretation: EKG performed at 1225 hours, sinus rhythm, rate 66, right bundle branch block, left anterior fascicular block, no acute ischemic changes, unchanged from prior EKG) Lab and/or radiology exams considered but not ordered:: none Interpretation Summary: Procedure(s): CT head/brain wo con Accession Number(s): [id number] cc: Boo (RACHEL),Jitendra RAMOS; Italo Diaz MD; Francisco Styles MD~ Examination: CT brain head without contrast. 2-D sagittal coronal reconstructions Date and time of exam: February 04, 2025, 12:42 p.m. INDICATIONS: Dizziness and headaches today CTDI: vol (mGy): 51.6 DLP: (mGycm): 996 Technique: Multiple CT axial sections of the brain have been obtained, 5 mm slice thickness. Contrast has not been administered. 2-D sagittal, coronal reconstructions have been obtained Low dose protocols were performed. One or more of the following dose reduction techniques were used; automated exposure control, adjustment of the mA and/or KV according to patient size, use of iterative reconstruction technique. Findings: No significant ventricular enlargement. Intra-axial or extra-axial hemorrhage density is not seen. No mass effect or midline shift Basal cisterns are not remarkable. Fourth ventricle is midline. Cranial vault intact. Impression: Negative for acute hemorrhage, mass effect or midline shift Advise clinical correlation and follow-up accordingly Dictated By: Italo Diaz MD Medications / Prescriptions Medications or Prescriptions considered but not ordered:: none Medication administrations:: Medication Administration History Albuterol/Ipratropium (Albuterol/Ipratropium (Duoneb) Rt Rosa 3 Ml Nebu) 3 ml INH Q6HRRT PRN PRN Reason: WHEEZING Stop: 03/06/25 18:59 Furosemide (Furosemide 40 Mg Tablet) 40 mg PO QDAY SIXTO Stop: 03/07/25 08:59 Ibuprofen (Ibuprofen Tab 400 Mg Tablet) 400 mg PO Q6HR PRN PRN Reason: Fever > 100.4 Stop: 03/06/25 15:18 Lactulose (Lactulose Syrup 20 Gm/30 Ml Udc) 30 gm PO TID SIXTO; Protocol Stop: 03/06/25 15:29 Last Admin: 02/04/25 15:40 Dose: 30 gm Documented By: TM Nicotine (Nicotine Patch 21 Mg/24 Hr Patch.Td24) 21 mg TOP QDAY SIXTO Stop: 03/06/25 15:39 Ondansetron HCl (Ondansetron Inj 2 Mg/Ml Inj 2 Ml) 4 mg IVP Q6H PRN; Protocol PRN Reason: NAUSEA OR VOMITING Stop: 03/06/25 15:24 Pantoprazole Sodium (Pantoprazole 40 Mg Tablet) 40 mg PO QDAY SIXTO Stop: 03/06/25 15:29 Last Admin: 02/04/25 15:40 Dose: 40 mg Documented By: TM Potassium Chloride (Potassium Chloride 10% 20 Meq/15 Ml Udc) 10 meq PO QDAY SIXTO Stop: 03/07/25 08:59 Spironolactone (Spironolactone 25 Mg Tablet) 25 mg PO BID SIXTO Stop: 03/06/25 20:59 see above if any Consultations Consultation(s) initiated? (list below): Yes Consultation #1 (Physician, Specialty, Details): Discussed test HPI, PMHx, lab, radiology results and/or management with resident working with the hospitalist. Will admit for further evaluation and management. Accepts patient for admission. Time: 16:13 Diagnosis Differential diagnosis altered mental status: other (Hepatic encephalopathy, metabolic disturbance, and electrolyte imbalance.) Most likely diagnosis given after review of the tests above:: Hepatic encephalopathy Admission Indicated Admission indicated?: indicated Admission Request Was there a request for admission?: Yes Admission Attestation Admission request attestation: Discussed case with [] from Hospitalist service regarding admission. Discussed patients ED course, exam findings, labs, and radiology results. The Hospitalist [agrees,declines] to accept the patient for admission. Disposition Plan Disposition Plan: Admit Discharge Plan Plan Patient Disposition: Admit Acute Care w/in Hospital Problem List Clinical Impression: Hepatic encephalopathy
--- NOTE | 2025-02-04 15:29 | XR_ITS ---
Examination: Abdomen sonogram, complete Date and time of exam: February 04, 2025, 1533 hours INDICATIONS: Cirrhosis diagnosis, 27 mm lesion medial right lobe of the liver on CT study 12/20/2024. Technique: Multiple real-time grayscale transabdominal sonographic images of the abdomen have been obtained. Findings: Absent gallbladder Common bile duct 0.6 cm no stones Pancreatic head 3.6 cm Aorta visualized not enlarged Liver 14.2 cm irregular contour and no liver lesions Portal vein not diagnostically visualized obscured by bowel gas Patent IVC Right kidney 10.7 cm renal cortex 1.8 cm Left kidney 13.1 cm renal cortex 2.2 cm Mild scarring Splenomegaly 16.7 cm IMPRESSION: Cirrhosis, no focal liver lesion confirmed on this study Consider MRI abdomen liver follow-up pre and postcontrast
[2025-02-04] MEDS: LACTULOSE SYRUP 20 GM/30 ML UDC 30 GM PO ×2 (15:40→21:16)
[2025-02-04] MEDS: PANTOPRAZOLE 40 MG TABLET PO (15:40)
--- NOTE | 2025-02-04 15:41 | ESHP_ITS ---
Documentation for date of: 02/04/25 Patient is a 64-year-old male with a past medical history of cirrhosis secondary to alcohol use disorder and hepatitis C (treated), history of substance use disorder including alcohol (sober for over 3 years), history of non-Hodgkin's lymphoma (in remission), COPD, GERD, incidental finding of 27 mm lesion of right lober of liver, who presented to the emergency altered. Renee is compliant with current lactulose regiment, but despite current dose, patient only has about 1 bowel movement a day. Mild tremors. Mild distention, but not abdominal tenderness, no fluid wave appreciated on physical exam. Patient will be admitted onto floors for observation for acute hepatic encephalopathy with ammonia level of 114. Increase Lactulose from 20 mg QID to Lactulose 30 TID. Continue spironolactone and lasix. CT head negative. Consider UTox if worsening. Consider UA if altered mental status worsening but denied urinary symptoms, not tender to palpation at supra-pubic region. Continue Duonebs as needed for COPD. Continue potassium pills given current use of lasix for cirrhosis. Reat abdominal US. - The patient's plan was discussed with attending Dr. Casandra Meyers MD PGY2 Internal Medicine HPI History of Present Illness Chief complaint: confused History of present illness: Brian is a 64 y/o male with PMHx of Cirrhosis, Hep C, Non-Hodgkin Lymphoma (in remission) and MRSA STI of left leg presented to ED for dizziness, weakness and says feels like ammonia level is increasing . ED Course: T 97.7 HR 66 RR 16 BP 148/81 O2% 95% on RA. Labs notable for PLT 91, Na 146. Ammonia 114 T Bili 2.0, AST 46, ALT 35, and ALP 156. CT Head noncon showed no acute findings. While in ED, no medications were given. IM Team consulted for hepatic encephalopathy. Patient reports that he has been feeling confused, dizzy and for the past couple of days. He says that he was recently here in the ER beginning of this month for similar symptoms. He says he has been dealing with cirrhosis for a long time. He says that his primary care doctor is Dr. Styles who manages his cirrhosis medicines including lactulose 20 g, Lasix 40 mg, spirinolactone 25 BID. He does not take rifaximin. He reports minimal RUQ pain. He reports having 1 bowel movement a day at home as his baseline with lactulose 20 BID. He also says that he takes his medicines as prescribed. Past Surgx Hx: history of SBO with therapeutic decompression ALL: PCN, anaphylaxis FH: n/a SH: Sober for 3 years from EtOH and recreational drugs, worked for [employer] in [place] in the past Review of Systems Review of Systems Systems Reviewed: All systems reviewed, normal except as documented Narrative Review of Systems: dizziness, light-headedness, and tremors Exam Vital Signs Temp Pulse Resp BP Pulse Ox O2 Del Method 97.8 F 63 18 149/67 H 99 Room Air 02/04/25 15:00 02/04/25 15:00 02/04/25 15:00 02/04/25 15:00 02/04/25 15:00 02/04/25 15:00 Narrative Exam General: No acute distress, well nourished Eye: PERRL, EOMI, normal conjunctiva, no scleral icterus HENT: Normocephalic, atraumatic, normal hearing, pink and moist mucous membranes, no oral lesions in mouth, throat shows no erythema Neck: Supple, non-tender, no JVD, no lymphadenopathy Lungs: Clear to auscultation bilaterally, non-labored respirations, symmetric chest rise, no use of accessory muscles, no wheezing Heart: Normal S1 and S2, no S3 or S4 appreciated. Normal rate and regular rhythm, no murmurs, rubs gallops, or edema. Peripheral pulses intact bilaterally, capillary refill brisk distally Abdomen: Soft, non-tender, non-distended, normal bowel sounds. No guarding or rebound tenderness. Musculoskeletal: Normal range of motion and strength. Skin: Skin is warm, dry, no rashes or lesions. Left leg shows signs of a healed wound. Neurologic: Alert, awake and oriented x4. CN II-XII grossly intact. No focal neuro deficits. No signs of meningeal irritation noted. No asterixis. Psychiatric: Cooperative, appropriate mood and affect Results: Labs 02/05/25 05:48 02/05/25 05:48 Labs: Short CBC 02/04/25 Range/Units 12:57 WBC 5.7 (3.8-10.6) Thou/mm3 Hgb 13.6 (13.5-16.0) g/dL Hct 37.6 L (41.0-53.0) % Plt Count 91 L (140-440) Thou/mm3 BMP 02/04/25 12:57 Sodium 146 H Potassium 3.5 Chloride 111 H Carbon Dioxide 25.1 BUN 7 L Creatinine 0.9 Glucose 126 H Calcium 8.3 Cardiac Enzymes 02/04/25 Range/Units 12:57 Troponin I < 0.020 (0.0-0.045) ng/mL Liver Function 02/04/25 Range/Units 12:57 Total Bilirubin 2.0 H (0.3-1.2) mg/dL AST 46 H (0-34) U/L ALT 35 (10-49) U/L Alkaline Phosphatase 156 H (46-116) U/L Albumin 3.7 (3.4-4.8) gm/dL Quality Measures Quality Measures none Medications Home Medications and Allergies Home Medications ?Medication ?Instructions ?Recorded ?Confirmed ?Type furosemide 40 mg tablet 40 mg PO QDAY 12/20/2402/04 History potassium chloride 10 mEq 10 meq PO QDAY 12/20/2401/12 History capsule,extended release Allergies Allergy/AdvReac Type Severity Reaction Status Date / Time Penicillins Allergy Severe Rash Verified 01/16/25 14:19 Visit Medications Albuterol/Ipratropium (Albuterol/Ipratropium (Duoneb) Rt Rosa 3 Ml Nebu) 3 ml INH Q6HRRT PRN PRN Reason: WHEEZING Stop: 03/06/25 18:59 Furosemide (Furosemide 40 Mg Tablet) 40 mg PO QDAY SIXTO Stop: 03/07/25 08:59 Ibuprofen (Ibuprofen Tab 400 Mg Tablet) 400 mg PO Q6HR PRN PRN Reason: Fever > 100.4 Stop: 03/06/25 15:18 Lactulose (Lactulose Syrup 20 Gm/30 Ml Udc) 30 gm PO TID SIXTO; Protocol Stop: 03/06/25 15:29 Nicotine (Nicotine Patch 21 Mg/24 Hr Patch.Td24) 21 mg TOP QDAY SIXTO Stop: 03/06/25 15:39 Ondansetron HCl (Ondansetron Inj 2 Mg/Ml Inj 2 Ml) 4 mg IVP Q6H PRN; Protocol PRN Reason: NAUSEA OR VOMITING Stop: 03/06/25 15:24 Pantoprazole Sodium (Pantoprazole 40 Mg Tablet) 40 mg PO QDAY SIXTO Stop: 03/06/25 15:29 Potassium Chloride (Potassium Chloride 20 Meq Tabcr) 10 meq PO QDAY SIXTO Stop: 03/07/25 08:59 Spironolactone (Spironolactone 25 Mg Tablet) 25 mg PO BID SIXTO Stop: 03/06/25 20:59 Assessment & Plan Plan Brian is a 64 y/o male with PMHx of Cirrhosis, Hep C, Non-Hodgkin Lymphoma (in remission) and MRSA STI of left leg presented to ED for dizziness, weakness admitted for observation. #Acute Hepatic Encephalopathy, secondary to cirrhosis #Cirrhosis, secondary to hx of alcohol use disorder and Hepatitis C (treated) #Aletered Mental Status #Dizziness #Tremor In ED, symptoms were feeling confused & dizzy Ammonia 114 Ammonia levels unchanged from last ED visit 01/16. CT head negative AOx4, no asterixis Plan: - CTM clinically - changed home lactulose 20 --> 30 TID SIXTO -Continue Lasix and Spirnolactone -Consider UA or blood culture if symptoms worsen #RUQ Pain #History of Cirrhosis #Thrombocytopenia PLT 91, Na 146. T Bili 2.0, AST 46, ALT 35, and ALP 156 Plan: - qAM CMP and CBC - ordered Abd - continue home med lasix 40 PO daily - conitnue home med spironolactone 25 BID #History of polysubstance use d/o #History of methamphetamine use d/o #History of alcohol use disorder d/o #Nicotine dependence Reports being clean for 3 years - nicotine patch 21g daily #History of COPD - started prn duoneds #GERD Continue home medication of Protonix. #History of hypokalemia - continue home med KCl 10mEQ PO daily - qAM CMP #incidental finding of 27 mm lesion of right lobe of liver Health maintenance: Diet: low salt diet GI PPX: Pantoprazole 40 p.o. daily DVT PPX: SCDs Avitia: N/A Electrolytes: Replete PRN CODE STATUS: DNR Disposition: observation Case was discussed with Attending Dr. Guajardo, and Senior Resident Dr. Luigi Olivo, DO PGY-1 Attending Provider Attestation/Addendum I have discussed and was present for the essential components of the history, physical examination, diagnosis, and treatment plan with the resident. I agree with the patient's care as documented by the resident and amended herein by me. Michele Guajardo DO. Although this document has been carefully reviewed, there may still be some phonetic and other typographical errors. These errors are purely grammatical due to imperfections in the software program and should not be construed in any way to compromise the substance of the patient's medical care during this visit.
[2025-02-04] MEDS: NICOTINE PATCH 21 MG/24 HR PATCH.TD24 TOP (18:46)
[2025-02-04] MEDS: SPIRONOLACTONE 25 MG TABLET PO (20:21)
[2025-02-04 21:05] LABS: Collection Type, Urine Clean Catch; Squamous Epithelial Cell,Urine 0 /hpf (0-5)
[2025-02-04 21:31] LABS: Bilirubin,Urine Negative (Negative); Blood,Urine Negative (Negative); Clarity,Urine Clear (Clear/Hazy); Color,Urine Yellow (Lt Yel-Yel); Culture Indicated,Urine Not Indicated; Glucose, Urine Negative (Negative); Ketones,Urine Negative (Negative); Leukocyte Esterase,Urine Negative (Negative); Nitrite,Urine Negative (Negative); PH,Urine 6.5 (5.0-7.0); Protein,Urine Negative (Neg - Trace); RBC,Urine < 1 /hpf (0-3); Specific Gravity,Urine 1.014 (1.001-1.035); Urobilinogen,Urine 3.0 mg/dL (0.0-1.0); WBC,Urine 1 /hpf (0-5)
[2025-02-04 21:59] LABS: Amphetamine/Methamp Scrn,U Negative (Negative); Barbiturate Screen,Urine Negative (Negative); Benzodiazepines Screen,Urine Negative (Negative); Benzoylecgonine Screen, Ur Negative (Negative); Fentanyl Screen,Urine Negative (Negative); Opiate Screen,Urine Negative (Negative); THC Screen,Urine Negative (Negative)
--- NOTE | 2025-02-04 23:58 | PC.NURSE ---
Pt feeling shaky and dizzy, BP 137/71, Temp 97.5, HR 58, RR 18 and O2 sats 99% on RA, blood sugar 114 MD Denise made aware, new order made to give Ativan PO x1.
[2025-02-05] VITALS (7 sets, daily range): BP systolic 121–137; BP diastolic 58–78; PULSE 56–78; RESP 17–98; TEMP 36.3–36.6; O2SAT 97–99
[2025-02-05] MEDS: ONDANSETRON INJ 2 MG/ML INJ 2 ML 4 MG IVP (00:25)
[2025-02-05] MEDS: LACTULOSE SYRUP 20 GM/30 ML UDC 30 GM PO (05:20)
[2025-02-05 06:28] LABS: Basophils # (Auto) 0.0 Thou/mm3 (0.0-0.2); Basophils % (Auto) 1 % (0-2.5); Eosinophils # (Auto) 0.2 Thou/mm3 (0.0-0.5); Eosinophils % (Auto) 4 % (0-10); Hematocrit 37.0 % (41.0-53.0); Hemoglobin 13.4 g/dL (13.5-16.0); Immature Granulocytes Auto 0.02 Thou/mm3 (0.00-0.00); Lymphocytes # (Auto) 1.6 Thou/mm3 (1.0-4.8); Lymphocytes % (Auto) 30 % (10-50); Mean Corpuscular HGB Conc 36.2 g/dl (31.0-37.0); Mean Corpuscular Hemoglobin 34.6 pg (25.0-35.0); Mean Corpuscular Volume 96 fL (80-100); Monocytes # (Auto) 0.5 Thou/mm3 (0.0-0.8); Monocytes % (Auto) 10 % (0-12); Neutrophils # (Auto) 2.8 Thou/mm3 (1.8-7.7); Neutrophils % (Auto) 55 % (37-80); Nucleated Red Blood Cell # 0.00 Thou/mm3 (0.00-0.00); Nucleated Red Blood Cell % 0 /100 WBC (0); Platelet Count 86 Thou/mm3 (140-440); RDW Standard Deviation 47.8 fL (35.1-43.9); Red Blood Count 3.87 Miln/mm3 (4.50-5.90); White Blood Count 5.2 Thou/mm3 (3.8-10.6)
[2025-02-05 07:44] LABS: Alanine Aminotransferase 33 U/L (10-49); Albumin, Serum 3.4 gm/dL (3.4-4.8); Albumin/Globulin Ratio 1.9 (1.2-2.2); Alkaline Phosphatase 109 U/L (46-116); Anion Gap 11 (7-16); Aspartate Amino Transferase 40 U/L (0-34); BUN/Creatinine Ratio 7 Ratio (12-20); Bilirubin,Total 3.1 mg/dL (0.3-1.2); Blood Urea Nitrogen 6 mg/dL (9-23); Calcium 8.3 mg/dL (8.3-10.6); Calcium (Corrected) 8.8 mg/dL (8.5-10.1); Carbon Dioxide 25.3 mMol/L (20.0-31.0); Cardiac Risk Estimate 2.8 RATIO (4.0-6.7); Chloride 111 mMol/L (98-107); Cholesterol 136 mg/dL (132-200); Creatinine (Component) 0.9 mg/dL (0.6-1.3); Estimated Creatinine Clearance 95.5 mL/min (>60); Globulin 1.8 gm/dL (2.3-3.5); Glucose 130 mg/dL (74-106); HDL Cholesterol 48 mg/dL (40-60); LDL Cholesterol,Calculated 77 mg/dL (0-130); Magnesium 1.8 mg/dL (1.6-2.6); Osmolality,Calculated 292 (275-295); Phosphorous 3.1 mg/dL (2.4-5.1); Potassium 3.2 mMol/L (3.4-5.1); Sodium 147 mMol/L (136-145); Total Protein 5.2 gm/dL (5.7-8.2); Triglycerides 55 mg/dL (30-150); eGFR > 60 See Note
[2025-02-05] MEDS: NICOTINE PATCH 21 MG/24 HR PATCH.TD24 TOP (08:24)
[2025-02-05] MEDS: SPIRONOLACTONE 25 MG TABLET PO (08:25)
[2025-02-05] MEDS: POTASSIUM CHLORIDE 10% 20 MEQ/15 ML UDC 10 MEQ PO (08:25)
[2025-02-05] MEDS: POTASSIUM CHL 10 mEq IVPB 10 MEQ/100 ML BAG 75 MEQ IV ×3 (08:25→11:29)
[2025-02-05] MEDS: PANTOPRAZOLE 40 MG TABLET PO (08:25)
--- NOTE | 2025-02-05 10:05 | ESDS_ITS ---
Planned Discharge Date 02/05/25 DS: Providers Provider Date of admission: 02/04/25 15:43 Primary care physician: Francisco Styles MD Admitting Provider: Sky Guajardo DO Attending Provider on Admission: Sky Guajardo DO Attending Provider on DC: Sky Guajardo DO Discharging Provider: Sky Guajardo DO DS: Diagnosis Problem List Completed Was Problem List Reviewed/Reconciled?: Yes Hospital Course Hospital Course Hospital course: Brian is a 64 y/o male with PMHx of Cirrhosis, Hep C, Non-Hodgkin Lymphoma (in remission) and MRSA STI of left leg presented to ED for dizziness, weakness admitted for observation. In the ED his VSS other than moderate hypertension BP 148/81 . Labs notable for thrombocytopenia PLT 91, Na 146. Ammonia 114 T Bili 2.0, AST 46, ALT 35, and ALP 156. CT Head noncon showed no acute findings. While in ED, no medications were given. IM Team consulted for hepatic encephalopathy. In the hospital his lactulose increased from 20mg to 30mg, he was started on lasix 40mg, spiranolactone 25mg BID. An abdominal US showed cirrhosis without focal lesions, recommended MRI abdomen follow up pre-post contrast, he has an MRI scheduled for 02/15. His mentaion and orientation improved. Patient had 3 BMs on admission and 2 BMs the following day. With improved mentation and resolution of symptoms of dizziness and nausea patient deemed safe to discharge home with family. Discharge Instructions: ? We have increased your lactulose dose to up to 30g 3 times a day. Adjust as necessary to achieve 2?3 bowel movements per day. Hold your dose if you have more than 3 bowel movements per day. ? You have been started on medication spironolactone for your liver failure. - Follow up with your primary care physician within 1 week of discharge. If you do not have a primary care physician, please follow up with the [facility] Residents clinic ([phone]) ? If you experience any new, worsening or persistent symptoms either call your primary doctor, or dial 911 or present to the emergency department. #Acute Hepatic Encephalopathy, secondary to cirrhosis #Cirrhosis, secondary to hx of alcohol use disorder and Hepatitis C (treated) #Altered Mental Status #Dizziness #Tremor #RUQ Pain #History of Cirrhosis #Thrombocytopenia #History of polysubstance use d/o #History of methamphetamine use d/o #History of alcohol use disorder d/o #Nicotine dependence #History of COPD #GERD #History of hypokalemia #incidental finding of 27 mm lesion of right lobe of liver Patient's plan and care discussed with my attending, Dr. Guajardo, and supervising resident MD Manolo Hansen MD Internal Medicine PGY-1 Senior Resident Attestation: I have discussed the case with supervising physician and corporate strategy intern physician involved in the care of patient. I personally saw and examined patient and discussed the assessment and plan with the entire medical team, including attending. I agree with assessment and plan as documented above. - The patient's plan was discussed with attending Dr. Casandra Meyers MD PGY2 Internal Medicine Status at Discharge Functional status at discharge: independent ambulation Overall status at discharge: patient is back to baseline Time Spent with Patient Time attestation: Total time spent providing and/or coordinating discharge services: Time spent: Greater than 30 minutes Exam Vital Signs Temp Pulse Resp BP Pulse Ox O2 Del Method 97.7 F 56 L 18 122/58 L 97 Nasal Cannula 02/05/25 08:00 02/05/25 08:26 02/05/25 08:00 02/05/25 08:26 02/05/25 08:00 02/05/25 08:00 Narrative Exam General: No acute distress, well nourished Eye: PERRL, EOMI, normal conjunctiva, no scleral icterus HENT: Normocephalic, atraumatic, normal hearing, pink and moist mucous membranes, no oral lesions in mouth, throat shows no erythema Neck: Supple, non-tender, no JVD, no lymphadenopathy Lungs: Clear to auscultation bilaterally, non-labored respirations, symmetric chest rise, no use of accessory muscles, no wheezing Heart: Normal S1 and S2, no S3 or S4 appreciated. Normal rate and regular rhythm, no murmurs, rubs gallops, or edema. Peripheral pulses intact bilaterally, capillary refill brisk distally Abdomen: Soft, non-tender, moderately distended, normal bowel sounds. No guarding or rebound tenderness, no fluid wave or ascites noted. Musculoskeletal: Normal range of motion and strength. Skin: Skin is warm, dry, no rashes or lesions. Left leg shows signs of a healed wound. Neurologic: Alert, awake and oriented x4. CN II-XII grossly intact. No focal neuro deficits. No signs of meningeal irritation noted. No asterixis. Psychiatric: Cooperative, appropriate mood and affect Discharge Plan Plan Patient Disposition: HOME (Self Care) Patient condition on transfer: Stable Care Plan Goals: ? We have increased your lactulose dose to up to 30g 3 times a day. Adjust as necessary to achieve 2?3 bowel movements per day. Hold your dose if you have more than 3 bowel movements per day. ? You have been started on medication spironolactone for your liver failure. - Follow up with your primary care physician within 1 week of discharge. If you do not have a primary care physician, please follow up with the [facility] Residents clinic ([phone]) ? If you experience any new, worsening or persistent symptoms either call your primary doctor, or dial 911 or present to the emergency department. Prescriptions/Referrals Prescriptions/Med Rec: New spironolactone 25 mg Tablet 25 mg PO BID 30 Days Qty: 60 1RF lactulose 10 gram/15 mL solution 30 g PO TID 30 Days Qty: 4050 2RF Continued furosemide 40 mg tablet 40 mg PO QDAY Patient Comments: TAKE 1 TABLET BY MOUTH EVERY DAY potassium chloride 10 mEq capsule, extended release 10 meq PO QDAY Patient Comments: TAKE 1 CAPSULE BY MOUTH EVERY DAY WITH FOOD albuterol sulfate [Ventolin HFA] 90 mcg/actuation HFA aerosol inhaler 1 inh inhalation QID PRN (Reason: shortness of breath or wheezing) 30 Days Qty: 6.7 0RF Discontinued lactulose 10 gram/15 mL solution 20 g PO QID Referrals: Francisco Styles MD [Primary Care Provider, Family Practice] Patient/Caregiver Discharge Instructions Discharge Activity: as per physical therapy Education Materials: Hepatic Encephalopathy Print Language: Citizen Of [place] Stand Alone Forms: Lynda Award Info., Patient Portal Info Letter, Work/Release Restrictions Discharge Order Discharge Orders: Discharge (Routine); Ordered 02/05/25 Ordered By: Catrachito Portillo Quality Discharge Quality Measures VTE prophylaxis Attestestation Attestation I have discussed and was present for the essential components of the discharge history, physical examination, diagnosis, and discharge treatment plan with the resident. I agree with the patient's discharge care as documented by the resident and amended herein by me. Michele Guajardo DO. The patient understood all discharge instructions, all questions were answered satisfactorily. The patient was instructed to return to the Emergency Department is symptoms worsened or persisted. Patient stable for discharge today, ANO x 4, had multiple bowel movements. Instructed the patient on proper lactulose use and he understood, will need close follow-up with his PCP to adjust dosing as needed. Patient was stable, afebrile, tolerant p.o. intake and ambulatory times discharge home. Although this document has been carefully reviewed, there may still be some phonetic and other typographical errors. These errors are purely grammatical due to imperfections in the software program and should not be construed in any way to compromise the substance of the patient's medical care during this visit. Time Spent on discharge:
--- NOTE | 2025-02-05 17:40 | PC.SS ---
64YO male, reason for visit: AMS, CONFUSED Frame Opener met with patient at bedside. Role and purpose of today?s contact was explained. Patient stated his daughter Jg Valencia [phone] is primary medical surrogate decisionmaker. Patient stated he is independent with ADL completion. He utilizes a FWW and cane to ambulate. PHARMACY: [facility]. PCP. Dr. Gaetano Styles. Patient is discharging home when medically clear. NEXT OF KIN: ?Daughter Jg Valencia [phone] DISCHARGE PLAN: home, sibling to transport.
== END 2025-02-05 14:04 | disposition home or self-care (01) ==
LOC: SERX 14:12 → SERHOLD 15:46 → S3NX 18:02
PROVIDERS: Nurse Practitioner Primary Care; Admitting Provider Student in an Organized Health Care Education/Training Program; Emergency Provider Emergency Medicine; PCP Family Medicine; Visit Provider Student in an Organized Health Care Education/Training Program
DX: K74.60 Unspecified cirrhosis of liver (principal); K76.82 Hepatic encephalopathy; R42 Dizziness and giddiness; K21.9 Gastro-esophageal reflux disease without esophagitis; J44.9 Chronic obstructive pulmonary disease, unspecified; C85.9A Non-Hodgkin lymphoma, unspecified, in remission; Z66 Do not resuscitate; I10 Essential (primary) hypertension; D69.6 Thrombocytopenia, unspecified; E87.6 Hypokalemia; F17.200 Nicotine dependence, unspecified, uncomplicated; F10.90 Alcohol use, unspecified, uncomplicated
CPT/HCPCS: 36415; 70450; 76700; 80053; 80061; 80307; 81001; 82140; 83735; 83880; 84100; 84484; 85025; 85610; 85730; 93005; 94664; 96374; 99283; G0378; J2405; J3480; A9270

== ENCOUNTER 2025-02-10 19:08 | Emergency (ER) | payer BC, SELFPAY ==
[2025-02-10 19:11] VITALS: BMI 30.7
[2025-02-10 19:27] VITALS: BP 137/74; PULSE 71; RESP 19; TEMP 36.6; O2SAT 97
--- NOTE | 2025-02-10 19:39 | EKG_ITS ---
[facility] Test Date: 2025-02-10 Pat Name: SHAHAB HARMON Department: Room: - Gender: Male Broth Mixer: : [id number] Requested By: Flora Hunter Order Number: [id number] Reading MD: Flora Hunter Measurements Intervals [place] Rate: 66 P: 31 NH: 132 QRS: -48 QRSD: 156 T: 45 QT: 454 QTc: 478 Interpretive Statements SINUS RHYTHM WITH SINUS ARRHYTHMIA RIGHT BUNDLE BRANCH BLOCK [120+ ms QRS DURATION, UPRIGHT V1, 40+ ms S IN I/aVL/V4/V5/V6] LEFT ANTERIOR FASCICULAR BLOCK [QRS AXIS <= -45, QR IN I, RS IN II] POSSIBLE SEPTAL MYOCARDIAL INFARCTION , OF INDETERMINATE AGE [30 ms Q WAVE IN V1/V2] Compared to ECG 02/04/2025 12:25:53 Myocardial infarct finding now present /store/S0/[id number]/[id number].pdf
--- NOTE | 2025-02-10 19:40 | PD.EDRME ---
Rapid Medical Screening Exam RME Arrival date/time: 02/10/25 19:08 This is a case of 64-year-old male with no medical history came in in the emergency room due to dizziness and low ammonia level patient was seen by Dr. Styles for further evaluation and treatment Chief Complaint: Dizziness Time Seen by Provider: 02/10/25 19:38 Vital signs: Vital Signs Temperature 97.9 F 02/10/25 19:27 Pulse Rate 71 02/10/25 19:27 Respiratory Rate 19 02/10/25 19:27 Blood Pressure 137/74 H 02/10/25 19:27 Pulse Oximetry (%) 97 02/10/25 19:27 Oxygen Delivery Method Room Air 02/10/25 19:27 Exam: Awake alert oriented x 4 no focal deficit GCS 15/15 steady gait Clinical Impression: Dizziness
[2025-02-10 20:19] LABS: Collection Type, Urine Voided
[2025-02-10 20:40] LABS: Basophils # (Auto) 0.1 Thou/mm3 (0.0-0.2); Basophils % (Auto) 1 % (0-2.5); Eosinophils # (Auto) 0.2 Thou/mm3 (0.0-0.5); Eosinophils % (Auto) 3 % (0-10); Hematocrit 40.4 % (41.0-53.0); Hemoglobin 14.6 g/dL (13.5-16.0); Immature Granulocytes Auto 0.05 Thou/mm3 (0.00-0.00); Lymphocytes # (Auto) 2.2 Thou/mm3 (1.0-4.8); Lymphocytes % (Auto) 28 % (10-50); Mean Corpuscular HGB Conc 36.1 g/dl (31.0-37.0); Mean Corpuscular Hemoglobin 34.1 pg (25.0-35.0); Mean Corpuscular Volume 94 fL (80-100); Monocytes # (Auto) 0.7 Thou/mm3 (0.0-0.8); Monocytes % (Auto) 9 % (0-12); Neutrophils # (Auto) 4.5 Thou/mm3 (1.8-7.7); Neutrophils % (Auto) 58 % (37-80); Nucleated Red Blood Cell # 0.00 Thou/mm3 (0.00-0.00); Nucleated Red Blood Cell % 0 /100 WBC (0); Platelet Count 101 Thou/mm3 (140-440); RDW Standard Deviation 48.2 fL (35.1-43.9); Red Blood Count 4.28 Miln/mm3 (4.50-5.90); White Blood Count 7.9 Thou/mm3 (3.8-10.6)
[2025-02-10 20:42] LABS: Ammonia 25 uMol/L (11-32)
[2025-02-10 20:50] LABS: Amorphous Crystals,Urine Present (Absent); Bilirubin,Urine Negative (Negative); Blood,Urine Negative (Negative); Clarity,Urine Clear (Clear/Hazy); Color,Urine Yellow (Lt Yel-Yel); Glucose, Urine Negative (Negative); Ketones,Urine Trace (Negative); Leukocyte Esterase,Urine Negative (Negative); Nitrite,Urine Negative (Negative); PH,Urine 6.5 (5.0-7.0); Protein,Urine Negative (Neg - Trace); RBC,Urine 1 /hpf (0-3); Specific Gravity,Urine 1.020 (1.001-1.035); Squamous Epithelial Cell,Urine < 1 /hpf (0-5); Urobilinogen,Urine Negative mg/dL (0.0-1.0); WBC,Urine 3 /hpf (0-5)
[2025-02-10 20:52] LABS: Alanine Aminotransferase 33 U/L (10-49); Albumin, Serum 3.9 gm/dL (3.4-4.8); Albumin/Globulin Ratio 1.7 (1.2-2.2); Alkaline Phosphatase 138 U/L (46-116); Anion Gap 7 (7-16); Aspartate Amino Transferase 24 U/L (0-34); BUN/Creatinine Ratio 6 Ratio (12-20); Bilirubin,Total 2.1 mg/dL (0.3-1.2); Blood Urea Nitrogen 5 mg/dL (9-23); Calcium 9.5 mg/dL (8.3-10.6); Calcium (Corrected) 9.6 mg/dL (8.5-10.1); Carbon Dioxide 26.9 mMol/L (20.0-31.0); Chloride 110 mMol/L (98-107); Creatinine (Component) 0.9 mg/dL (0.6-1.3); Estimated Creatinine Clearance 94.0 mL/min (>60); Globulin 2.3 gm/dL (2.3-3.5); Glucose 115 mg/dL (74-106); Osmolality,Calculated 285 (275-295); Potassium 4.4 mMol/L (3.4-5.1); Sodium 144 mMol/L (136-145); Total Protein 6.2 gm/dL (5.7-8.2); Troponin I < 0.020 ng/mL (0.0-0.045); eGFR > 60 See Note
--- NOTE | 2025-02-10 21:01 | PD.EDDIZZY ---
ED Dizzyness RME/HPI General Chief Complaint: Dizziness Stated Complaint: DIZZY,ABD PAIN Time Seen by Provider: 02/10/25 19:38 Arrival date/time: 02/10/25 19:08 RME / HPI RME / HPI Narrative: 02/10/25 19:08 This is a case of 64-year-old male with no medical history came in in the emergency room due to dizziness and low ammonia level patient was seen by Dr. Styles for further evaluation and treatment DR. MCCOY MAIN ED EVALUATION: 64 y/o male with Hx of Cirrhosis, Hypotension, Hepatitis, and GERD presents to ED for ongoing dizziness with associated abdominal pain. Patient [facility] after treatment for hepatic encephalopathy. Patient attributes deteriorate liver health to recreational drugs and alcohol use. Patient reports missing his 8 PM dose of Lactulose. Exam: Awake alert oriented x 4 no focal deficit GCS 15/15 steady gait Impression: Dizziness Related Data Home Medications ?Medication ?Instructions ?Recorded ?Confirmed furosemide 40 mg tablet 40 mg PO QDAY 12/20/24 02/04/25 potassium chloride 10 mEq 10 meq PO QDAY 12/20/24 02/04/25 capsule,extended release Previous Rx's ?Medication ?Instructions ?Recorded albuterol sulfate 90 mcg/actuation 1 inh inhalation QID PRN shortness 01/16/25 aerosol inhaler (Ventolin HFA) of breath or wheezing 1 month #6.7 grams lactulose 10 gram/15 mL oral 30 g (45 mL) PO TID 1 month #4,050 02/05/25 solution mL spironolactone 25 mg tablet 25 mg PO BID 30 days #60 tabs 02/05/25 Allergies Allergy/AdvReac Type Severity Reaction Status Date / Time Penicillins Allergy Severe Rash Verified 02/10/25 19:09 Past Medical History Past Medical History CARDIAC: Positive Edema and Hypotension RESPIRATORY: Positive Chronic Obstructive Pulmonary Disease (COPD), Bronchitis and Pneumonia GASTROINTESTINAL: Positive Gastrointestinal Disorders, Hepatitis, Cirrhosis, Gall Bladder Disease, Obstructive Bowel and Gastroesophageal Reflux Disease MUSCULOSKELETAL: Positive Musculoskeletal Disorders and Arthritis ENT: Positive Ear Infection and Deafness PSYCHO/SOCIAL: Positive Depression and Anxiety OTHER HISTORY: Positive Chemotherapy and Cancer Surgical History SURGICAL: Positive Tonsillectomy, Abdominal Surgery, Gastrostomy and Bowel Surgery Social History SMOKING STATUS: Current every day smoker ED Exam Narrative Physical exam: Generally patient is alert chronically ill-appearing male. Heart regular rate and rhythm, lungs clear to auscultation equal bilaterally, abdomen soft bowel sounds present obese nondistended nontender, extremities show venous stasis color changes with chronic edema, neurologic exam shows patient have a [place] Coma Scale of 15 without focal motor deficit Course Quality Measures none Orders Category Date Time Status EKG (ED ONLY) *Do not use* NOW Care 02/10/25 19:39 Completed EKG (ED Only) Stat Exams 02/10/25 19:39 Draft Ammonia Stat Lab 02/10/25 20:10 Completed CBC Stat Lab 02/10/25 20:10 Completed CMP [Comprehensive Metabolic Panel] Stat Lab 02/10/25 20:10 Completed Troponin I Stat Lab 02/10/25 20:10 Completed Urinalysis Stat Lab 02/10/25 20:04 Completed Vital Signs Vital signs: Vital Signs Temperature 97.9 F 02/10/25 19:27 Pulse Rate 71 02/10/25 19:27 Respiratory Rate 19 02/10/25 19:27 Blood Pressure 137/74 H 02/10/25 19:27 Pulse Oximetry (%) 97 02/10/25 19:27 Oxygen Delivery Method Room Air 02/10/25 19:27 Dizziness MDM Narrative MDM Narrative:: Scribe Attestation: IKristel, am scribing for and in the presence of Dr. Mccoy. Provider Notation: Although this document has been carefully reviewed, there may still be some phonetic and other typographical errors. These errors are purely grammatical due to imperfections in the software program and should not be construed in any way to compromise the substance of the patient's medical care during this visit. I interpreted all labs. Ammonia level is normal. There is no focality to the patient's exam. Patient was complaining of dizziness which appears to be chronic. He has had it for a number of weeks. He had recent hospitalization with dizziness with hepatic encephalopathy. Patient is stable for discharge. Continue all current medications. Patient data External records reviewed:: [facility] previous records (Reviewed prior ED records from 02/04/25. Patient was seen and discharged for Hepatic encephalopathy.) Clinical information provided by:: patient Social determinants that could affect healthcare access:: substance use (and Alcohol) Patient has the following chronic illnesses:: Hypotension, Chronic Obstructive Pulmonary Disease (COPD), Hepatitis, Cirrhosis, Gall Bladder Disease, Obstructive Bowel, Gastroesophageal Reflux Disease, Arthritis, Deafness, Depression, Anxiety, CA How is presenting disease/condition affected by chronic disease/condition?: exacerbated by Evaluation data The following diagnostics were reviewed and interpreted by me:: lab results and EKG tracing(s) Lab and/or radiology exams considered but not ordered:: None Interpretation Summary: See MDM above Medications / Prescriptions Medications or Prescriptions considered but not ordered:: None Medication administrations:: See above if any Consultations Consultation(s) initiated? (list below): No Diagnosis Dizziness Differential Diagnosis: adverse reaction to drug, orthostatic hypotension and other (Hepatic encephalopathy) Most likely diagnosis given after review of the tests above:: none Admission Indicated Admission indicated?: not indicated Explain why admission is indicated or not indicated:: Patient does not meet admission criteria Admission Request Was there a request for admission?: No Disposition Plan Disposition Plan: Discharge Discharge Attestation Discharge Attestation: The patient and all family members were given an opportunity to ask questions and understood the discharge instructions. Discharge instructions specifically effects, indications for sooner follow up or return to the emergency department, and the expected course of current diagnosis. Patient condition: Stable Discharge Plan Plan Patient Disposition: HOME (Self Care) Prescriptions/Referrals Prescriptions/Med Rec: No Action furosemide 40 mg tablet 40 mg PO QDAY Patient Comments: TAKE 1 TABLET BY MOUTH EVERY DAY potassium chloride 10 mEq capsule, extended release 10 meq PO QDAY Patient Comments: TAKE 1 CAPSULE BY MOUTH EVERY DAY WITH FOOD albuterol sulfate [Ventolin HFA] 90 mcg/actuation HFA aerosol inhaler 1 inh inhalation QID PRN (Reason: shortness of breath or wheezing) 30 Days Qty: 6.7 0RF spironolactone 25 mg Tablet 25 mg PO BID 30 Days Qty: 60 1RF lactulose 10 gram/15 mL solution 30 g PO TID 30 Days Qty: 4050 2RF Referrals: Francisco Styles MD [Primary Care Provider, Family Practice] - In 1 week Problem List Clinical Impression: Dizziness, End stage liver disease Patient/Caregiver Discharge Instructions Additional Instructions: Continue all current medications. Follow-up with your doctor for further treatment and evaluation. Print Language: [place] Stand Alone Forms: Visual[employer]ly., Patient Portal Info Letter
[2025-02-10 21:32] VITALS: BP 146/73; PULSE 66; RESP 23; TEMP 36.9; O2SAT 98
== END 2025-02-10 21:36 | disposition home or self-care (01) ==
PROVIDERS: Nurse Practitioner Family; Emergency Provider Emergency Medicine; PCP Family Medicine
DX: R42 Dizziness and giddiness (principal); K72.10 Chronic hepatic failure without coma
CPT/HCPCS: 36415; 80053; 81001; 82140; 84484; 85025; 93005; 99282

== ENCOUNTER → 2025-02-15 | Outpatient (CLI) | payer BC, SELFPAY ==
--- NOTE | 2025-02-15 09:45 | XR_ITS ---
Examination: MRI abdomen with intravenous contrast. MRI abdomen without intravenous contrast. Date and time of exam: February 15, 2025, 10:16 a.m. INDICATIONS: Diagnosis alcoholic cirrhosis of liver with ascites, generalized abdominal pain months, abdomen sonogram February 04, 2025, CT examination 12/21/1999 2527 mm lesion medial right lobe of the liver Technique: Multiple axial, sagittal and coronal sections of the abdomen obtained. Transverse images, TR 6020, TE 107. T1 weighted transverse images, TR 582, TE 9.5. T2-weighted sagittal images, TR 4000, TE 105. T2-weighted sagittal images, TR 4000, TE 5. Coronal images, TR 4210, TE 107. Axial and coronal images are obtained post 20 cc intravenous injection, gadolinium. Findings: Partially cystic lesion with irregular margins in medial right lobe of the liver on the precontrast images, measuring 25 mm Liver is irregular in contour with splenomegaly Postcontrast images do not demonstrate definite enhancement of this liver lesion No pancreatic mass No ascites No hydronephrosis Aorta normal size IMPRESSION: 25 mm complex septated cystic lesion medial right lobe of the liver without clear-cut enhancement Recommend 3 to 6-month follow-up MRI liver pre and postcontrast:
== END | disposition home or self-care (01) ==
LOC: SMRI 09:40
PROVIDERS: PCP Family Medicine; Referring Provider Family Medicine; Visit Provider Family Medicine
DX: K76.9 Liver disease, unspecified (principal)
CPT/HCPCS: 74183; A9577